=== PATIENT | female | born 1960 | race Caucasian/White ===

== ENCOUNTER 2024-06-27 08:02 | Emergency (ER) | payer BC, SELFPAY ==
--- NOTE | ~2024-06-27 | CT_ITS ---
EXAMINATION: CT ABDOMEN AND PELVIS WITHOUT CONTRAST CLINICAL INFORMATION: Pain COMPARISON: None available. TECHNIQUE: Multidetector volumetric imaging was performed from the superior aspect of the liver through the pubic symphysis. Sagittal and coronal reformatted images were obtained on the technologist's workstation. This CT examination was performed using dose optimization techniques as appropriate, variously including the following: *Automated exposure control *Adjustment of mA and/or kV according to patient size (this includes techniques or standardized protocols for targeted exams where dose is matched to indication/reason for exam; i.e. extremities or head) *Use of iterative reconstruction technique DLP: 6:15 mGy-cm FINDINGS: LUNG BASES: The visualized lung bases are unremarkable. LIVER, GALLBLADDER, AND BILIARY TREE: Changes of diffuse hepatic steatosis without any discrete lesion. No gross biliary ductal dilatation. The gallbladder is unremarkable with no evidence of radiopaque gallstones, gallbladder wall thickening, or obvious pericholecystic inflammatory changes. PANCREAS: Unremarkable. SPLEEN: Unremarkable. ADRENAL GLANDS: Unremarkable. KIDNEYS AND URETERS: There is mild fullness of the right urinary collecting system without a definite stone seen. No evidence for any definite passed stone within the bladder lumen. No left-sided abnormality. BLADDER: Unremarkable. GASTROINTESTINAL TRACT: The small and large bowel are unremarkable. The appendix is unremarkable. ABDOMINAL WALL: No significant hernia is appreciated. LYMPH NODES: Normal. VASCULAR: Unremarkable. PELVIC VISCERA: Unremarkable. OSSEOUS STRUCTURES: Unremarkable. CT/CT abdomen pelvis wo IV con IMPRESSION: Mild fullness of the right urinary collecting system without a definite stone seen. This may be related to a recently passed stone. Normal appendix. Fleischner guidelines were followed.
[2024-06-27 08:19] VITALS: BP 127/65; BP 139/50; PULSE 65; PULSE 74; RESP 18; TEMP 37.7; O2SAT 94; O2SAT 99; BMI 28.1
--- NOTE | 2024-06-27 08:25 | ED_ITS ---
HPI - Female Genitourinary General Chief complaint: Urogenital-Female Stated complaint: UTI SYMPTOMS FEVER Time Seen by Provider: 06/27/24 08:08 Source: patient and EMS Mode of arrival: EMS Limitations: no limitations History of Present Illness ED Provider: DR. Jansen HPI Narrative: 64-year-old female brought in by ambulance for evaluation of abdominal pain and nausea. For the past 2 days patient been having dysuria, frequency urination and urinary hesitancy was seen by her PCP yesterday who diagnosed her with UTI and prescribed Macrobid 100 mg b.i.d. x5 days patient took her 1st dose yesterday woke up this morning with fever 100.8, feeling nauseous, and right side abdominal pain then patient called 911 and was received Zofran from EMS now patient feels better. Patient is complaining of right-sided abdominal pain. 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 No history of intra-abdominal surgery. Related Data Allergies Allergy/AdvReac Type Severity Reaction Status Date / Time fentanyl Allergy Anaphylaxis Verified 06/27/24 08:20 Review of Systems 2 Review of Systems: All other systems are reviewed and are negative Constitutional: Reports as per HPI and Reports no additional constitutional complaints Eyes: Reports as per HPI and Reports no additional eye complaints Reports system reviewed and no additional complaints, except as documented Cardiovascular: Reports as per HPI and Reports no additional cardiovascular complaints Respiratory: Reports as per HPI and Reports no additional respiratory complaints Gastrointestinal: Reports as per HPI and Reports no additional gastrointestinal complaints Genitourinary: Reports no additional female genitourinary complaints Musculoskeletal: Reports no additional musculoskeletal complaints Skin/Breast: Reports system reviewed and no additional complaints, except as docu Psychiatric: Reports no additional psychiatric complaints Endocrine: Reports no additional endocrine complaints Hematologic/Lymphatic: Reports no additional hematologic/lymphatic complaints Allergic/Immunologic: Reports no additional allergic/immunologic complaints Reports system reviewed and no additional complaints, except as documented and Reports Abnormal speech present [facility] Social History Social History Alcohol intake: current Alcohol intake frequency: 0-2 drinks per day Alcohol type: wine Smoked in Last 30 Days: No Use of substances other than those prescribed or required for medical reasons: No Advance Directives: No Advance Directives Information Provided: No Physical Exam 2 Vital Signs: Vital Signs: Last Vital Signs Temp 98.9 F 06/27/24 09:53 Pulse 69 06/27/24 09:53 Resp 16 06/27/24 09:53 BP 121/53 L 06/27/24 09:53 Pulse Ox 95 06/27/24 09:53 O2 Del Method Room Air 06/27/24 09:53 BMI result Body Mass Index 28.1 Vital signs have been reviewed and appear to be correct. Blood pressure elevated. Heart rate normal. Respiratory rate normal. Temperature normal. Oxygen saturation normal. Appearance: Alert. Oriented X3. No acute distress. Head: Normal external exam. Normocephalic. Atraumatic. No Lindsey signs noted. No raccoon eyes noted Eyes: PERRLA. EOMI. Conjunctiva and sclera normal. Eyelids normal. ENT: TM's Normal. Pharynx normal. Uvula midline. Moist mucous membranes. No trismus noted. No drooling noted. No muffled voice noted. Neck: Normal inspection. Neck supple. FROM. No adenopathy. Thyroid Normal. No meningeal signs. No neck mass noted. CVS: Normal heart rate and rhythm. Heart sound normal. No murmurs noted. Pulses normal throughout. Respiratory: No respiratory distress. Painless inspiration. Breath sounds normal. No wheezes/rales/rhonchi noted. Chest nontender. No accessory muscle usage noted or decreased air movement noted. Abdomen: Soft and nontender. Bowel sounds normal in all 4 quadrants. No distention noted. No organomegaly noted. No visible injury noted. Back: No CVA tenderness. Full range of motion noted. Skin: Skin warm and dry. Normal skin color. Normal skin turgor. No rashes/lesions/lacerations noted. Extremities: No lower extremity edema. Extremities exhibit normal range of motion. Extremities nontender. Neuro: Oriented X 3. Cranial nerve exam: II-XII are grossly intact No motor deficit. No sensory deficit. Reflexes normal. Course Reevaluation(s) Reevaluation #1: 64-year-old female presented with generally not feeling well, recently treated with Macrobid for UTI only took 1 dose yesterday. Patient was instructed to finish her antibiotic and drink plenty of fluids and follow-up with the PCP. Time: 11:21 Medications Administered Discontinued Medications Generic Name Dose Route Start Last Admin Trade Name Freq PRN Reason Stop Dose Admin Sodium Chloride 1,000 mls @ 999 mls/hr 06/27/24 08:24 06/27/24 09:51 Ns IV 06/27/24 09:24 Infused .Q1H1M ONE Infusion Medical Decision Making Differential Diagnosis Differential Diagnoses: The differential diagnosis associated with the presentation includes (Acute appendicitis, colitis, diverticulitis, acute pancreatitis, acute cholecystitis, UTI, pyelonephritis, kidney stone, electrolyte derangement, severe anemia.) Admission/Observation Consideration of admission/observation: Escalation of care including admission/observation considered Lab Data MDM Lab Attestation statement: I reviewed the patient's lab results. 06/27/24 08:55 06/27/24 08:55 Labs: Lab Results 06/27/24 06/27/24 Range/Units 08:55 09:54 WBC 6.9 (4.8-10.8) X10*3/uL RBC 3.55 L (4.20-5.50) X10*6/uL Hgb 11.7 L (12.0-16.0) g/dl Hct 33.4 L (37.0-47.0) % MCV 94.1 (80.0-98.0) fL MCH 33.0 (27.0-33.0) pg MCHC 35.0 (31.0-35.0) g/dl RDW 12.5 (11.0-16.0) % Plt Count 149 L (160-400) X10*3/uL MPV 8.9 L (9.4-12.3) fL Immature Gran % (Auto) 0.6 H (0.0-0.4) % Neut % (Auto) 88.9 H (45-73) % Lymph % (Auto) 2.8 L (20-40) % [place] % (Auto) 6.4 (2-11) % Eos % (Auto) 0.9 (0-4) % Baso % (Auto) 0.4 (0-2) % Lymph # (Auto) 0.2 L (1.2-4.9) X10*3/uL [place] # (Auto) 0.4 (0.1-1.2) X10*3/uL Eos # (Auto) 0.1 (0.0-0.4) X10*3/uL Baso # (Auto) 0.0 (0.0-0.2) X10*3/uL Abs Immat Gran (auto) 0.04 H (0.00-0.03) X10*3/uL Absolute Neuts (auto) 6.1 (2.0-8.3) x10*3/uL Absolute Nucleated RBC 0.000 (0.0-0.012) X10*3/uL Nucleated RBC % (auto) 0.0 (0.0-0.2) /100WBC Sodium 140 (135-145) mmol/L Potassium 3.9 (3.3-5.1) mmol/L Chloride 104 (96-108) mmol/L Carbon Dioxide 26 (22-29) mmol/L Anion Gap 14 (12-20) BUN 20 H (9-16) mg/dL Creatinine 0.73 (0.5-1.4) mg/dL Estim Creat Clear Calc 78.9 Estimated GFR > 60 Random Glucose 105 (60-115) mg/dL Calcium 8.5 (8.4-10.2) mg/dL Total Bilirubin 0.4 (0.0-1.0) mg/dL Direct Bilirubin 0.1 (0.0-0.5) mg/dL AST 25 (5-31) U/L ALT 30 (0-31) U/L Alkaline Phosphatase 88 (39-117) U/L Total Protein 6.5 (6.5-8.0) g/dL Albumin 4.1 (3.5-5.0) g/dL Lipase 19 (8-78) U/L Urine Color [place] Urine Appearance Clear Urine pH 6.5 (5.0-9.0) Ur Specific [place] 1.015 (1.005-1.025) Urine Protein Negative (Neg-Trace) mg/dL Urine Glucose (UA) 100 H (Negative) mg/dL Urine Ketones Negative (Negative) mg/dL Urine Blood Trace (Negative) Urine Nitrite Positive H (Negative) Ur Leukocyte Esterase Negative (Negative) Urine RBC 0-2 (0-2) /HPF Urine WBC 0-5 (0-5) /HPF Ur Squamous Epith Cells 0-2 (0-2) /HPF Urine Bacteria None Seen (None Seen) Hyaline Casts 0-2 (0-2) /LPF Independent Interpretation I performed an independent interpretation of an: CT Scan (CT abdomen pelvis:Mild fullness of the right urinary collecting system without a definite stone seen. This may be related to a recently passed stone. Normal appendix.) Radiology Impression Discussion of test interpretation with radiology: I have reviewed the radiologist's reading. Discharge Plan Discharge Clinical Impression: Urinary tract infection Patient Disposition: Home, Self-Care Instructions: Urinary Tract Infection in Women (ED) Additional Instructions: Continue with your antibiotic as prescribed by your doctor. Drink plenty of fluids. Take Tylenol 500 mg tablet [id number] medication if needed every 6 hours for fever. Referrals: Rozina Kovacs NP [Primary Care Provider] - Print Language: Wolof
[2024-06-27 08:31] VITALS: BP 132/60; PULSE 65; RESP 16; TEMP 37.7; O2SAT 95
[2024-06-27] MEDS: 0.9 % Sodium Chloride 1,000 ML 999 ML IV (08:37)
[2024-06-27 09:02] LABS: MANUAL DIFF FLAG NO
[2024-06-27 09:07] LABS: Basophils Percent Auto 0.4 % (0-2); Eosinophils Absolute Auto 0.1 X10*3/uL (0.0-0.4); Eosinophils Percent Auto 0.9 % (0-4); Hematocrit 33.4 % (37.0-47.0); Hemoglobin 11.7 g/dl (12.0-16.0); Imm Gran Abs Auto 0.04 X10*3/uL (0.00-0.03); Imm Gran Pct Auto 0.6 % (0.0-0.4); Lymphocytes Absolute Auto 0.2 X10*3/uL (1.2-4.9); Lymphocytes Percent Auto 2.8 % (20-40); Mean Corpuscular Volume 94.1 fL (80.0-98.0); Mean Platelet Volume 8.9 fL (9.4-12.3); Monocytes Absolute Auto 0.4 X10*3/uL (0.1-1.2); Monocytes Percent Auto 6.4 % (2-11); Neutrophils Absolute Auto 6.1 x10*3/uL (2.0-8.3); Neutrophils Percent Auto 88.9 % (45-73); Platelet Count 149 X10*3/uL (160-400); Red Blood Count 3.55 X10*6/uL (4.20-5.50); Red Cell Distribution Width 12.5 % (11.0-16.0); White Blood Count 6.9 X10*3/uL (4.8-10.8)
[2024-06-27 09:18] LABS: Alanine Aminotransferase 30 U/L (0-31); Albumin Level 4.1 g/dL (3.5-5.0); Alkaline Phosphatase 88 U/L (39-117); Anion Gap 14 (12-20); Aspartate Amino Transferase 25 U/L (5-31); Bilirubin Direct 0.1 mg/dL (0.0-0.5); Bilirubin Total 0.4 mg/dL (0.0-1.0); Blood Urea Nitrogen 20 mg/dL (9-16); Calcium 8.5 mg/dL (8.4-10.2); Carbon Dioxide 26 mmol/L (22-29); Chloride 104 mmol/L (96-108); Creatinine Clr Calc Pharmacy 78.9; Estimated Glomerular Filt Rate > 60; Glucose Random 105 mg/dL (60-115); Lipase 19 U/L (8-78); Potassium 3.9 mmol/L (3.3-5.1); Sodium 140 mmol/L (135-145); Total Protein 6.5 g/dL (6.5-8.0)
[2024-06-27 09:53] VITALS: BP 121/53; PULSE 69; RESP 16; TEMP 37.2; O2SAT 95
[2024-06-27 10:03] LABS: Appearance Urine Clear; Glucose Urine UA 100 mg/dL (Negative); Leukocyte Esterase Urine Negative (Negative); Nitrite Urine Positive (Negative); PH 6.5 (5.0-9.0); Specific Gravity - Urine 1.015 (1.005-1.025); UMIC TRIGGER UACC YES; Urine Blood Trace (Negative); Urine Ketones Negative (Negative); Urine Protein Negative (Neg-Trace)
[2024-06-27 10:10] LABS: Color Urine Orange
[2024-06-27 10:12] LABS: Bacteria Urine None Seen (None Seen); Hyaline Casts Urine 0-2 /LPF (0-2); RBC Urine 0-2 /HPF (0-2); Squamous Epithelial Cell Urine 0-2 /HPF (0-2); UACC Culture Trigger YES; WBC Urine 0-5 /HPF (0-5)
[2024-06-27] MEDS: Acetaminophen 325 MG TABLET 650 MG PO (11:40)
[2024-06-27 11:42] VITALS: BP 128/48; PULSE 64; RESP 16; TEMP 36.9; O2SAT 95
[2024-06-27 11:53] VITALS: BP 128/48; PULSE 64; RESP 16; TEMP 36.9; O2SAT 95
== END 2024-06-27 11:53 | disposition home or self-care (01) ==
PROVIDERS: Emergency Provider Emergency Medicine; PCP Nurse Practitioner
DX: N39.0 Urinary tract infection, site not specified (principal); R10.9 Unspecified abdominal pain
CPT/HCPCS: 36415; 74176; 80048; 80076; 81001; 81003; 83690; 85025; 87040; 87086; 96360; 99284

== ENCOUNTER 2024-09-02 06:51 | Inpatient (IN) | payer BC, SELFPAY ==
[2024-09-02] VITALS (20 sets, daily range): BP systolic 91–140; BP diastolic 50–89; PULSE 55–95; RESP 14–24; TEMP 36.7–38.8; O2SAT 92–97; BMI 23.2
--- NOTE | ~2024-09-02 | XR_ITS ---
EXAMINATION: XR CHEST CLINICAL INFORMATION: Shortness of breath. Fever. COMPARISON: None available. TECHNIQUE: Frontal view of the chest was obtained. FINDINGS: Right chest pacemaker with leads extending to the right atrium and right ventricle. Cardiomediastinal silhouette is within normal limits. Lungs are symmetrically expanded. No focal consolidation, effusion, edema or pneumothorax. No acute osseous abnormality. XR/XR chest 1V IMPRESSION: No evidence of acute pulmonary process. Electronically signed by: Tre Taylor MD 09/02/2024 08:50 AM EDT
--- NOTE | ~2024-09-02 | CT_ITS ---
EXAMINATION: CT ANGIOGRAM CHEST CLINICAL INFORMATION: Hypoxia, sepsis, elevated D-dimer. COMPARISON: None available. TECHNIQUE: Multiple axial images were obtained through the chest after the administration of 85 mL of Omnipaque 350 intravenous contrast. Extensive vascular post-processing including two-dimensional and three-dimensional reformatted images were created and reviewed on an independent workstation. This CT examination was performed using dose optimization techniques as appropriate, variously including the following: *Automated exposure control *Adjustment of mA and/or kV according to patient size (this includes techniques or standardized protocols for targeted exams where dose is matched to indication/reason for exam; i.e. extremities or head) *Use of iterative reconstruction technique DLP: 741 mGy-cm FINDINGS: QUALITY OF STUDY/CONTRAST BOLUS: Satisfactory. PULMONARY ARTERIES: No evidence of filling defects in the main, lobar, segmental vessels to suggest pulmonary embolus. THORACIC AORTA: No aneurysm. LUNG: Patchy opacities in the posterior aspect of bilateral lower lungs, likely reflecting atelectasis. No lobar consolidation otherwise. No suspicious pulmonary nodules seen. PLEURA: No pleural effusion or pneumothorax. MEDIASTINUM: Normal heart size. No pericardial effusion. No hilar or mediastinal lymphadenopathy. No evidence of septal bowing or right heart strain. CORONARY ARTERY CALCIFICATION: None visualized on this study. CHEST WALL/AXILLA: No axillary or internal mammary lymphadenopathy. OSSEOUS STRUCTURES: No acute or suspicious osseous abnormality. UPPER ABDOMEN: See abdomen CT report. No reflux of contrast into the hepatic veins to suggest elevated right heart pressures. CT/CT angio chest PE protocol IMPRESSION: No evidence of filling defects to suggest pulmonary embolism. Opacities in the posterior aspect bilateral lungs, probably reflecting atelectasis versus infectious/inflammatory process. VTE: Negative Fleischner guidelines were followed. Electronically signed by: Tre Taylor MD 09/02/2024 01:43 PM EDT
--- NOTE | ~2024-09-02 | CT_ITS ---
EXAMINATION: CT ABDOMEN AND PELVIS WITH CONTRAST CLINICAL INFORMATION: Flank pain, sepsis. COMPARISON: CT 06/27/2024. TECHNIQUE: Multidetector volumetric images were obtained from the superior aspect of the liver through the pubic symphysis following administration 85 mL of Omnipaque 350 intravenous contrast. Sagittal and coronal reformatted images were obtained on the technologist's workstation. Oral contrast: No This CT examination was performed using dose optimization techniques as appropriate, variously including the following: *Automated exposure control *Adjustment of mA and/or kV according to patient size (this includes techniques or standardized protocols for targeted exams where dose is matched to indication/reason for exam; i.e. extremities or head) *Use of iterative reconstruction technique DLP: 81.29 mGy-cm. FINDINGS: LUNG BASES: See CT chest report. LIVER, GALLBLADDER, AND BILIARY TREE: The liver is normal in size, shape, and attenuation. No focal hepatic lesion or biliary ductal dilatation is present. The gallbladder is unremarkable with no evidence of radiopaque gallstones, gallbladder wall thickening, or obvious pericholecystic inflammatory changes. PANCREAS: Unremarkable. SPLEEN: Unremarkable. ADRENAL GLANDS: Unremarkable. KIDNEYS AND URETERS: Symmetric enhancement. Small left renal hypodense lesion, probable cyst, no followup indicated. No calculi seen. No hydronephrosis. BLADDER: Unremarkable. GASTROINTESTINAL TRACT: The small and large bowel are unremarkable. No acute inflammatory changes seen. The appendix is unremarkable. No free fluid. No free air. ABDOMINAL WALL: No significant hernia is appreciated. LYMPH NODES: No adenopathy is identified. VASCULAR: Normal caliber aorta. Hepatic and portal veins are enhancing. PELVIC VISCERA: Unremarkable. OSSEOUS STRUCTURES: No destructive osseous process seen. CT/CT abdomen pelvis w IV con IMPRESSION: No acute intra-abdominal findings identified. Cause of the patient's symptoms has not been determined by CT. Clinically correlate. Additional/follow-up imaging as clinically indicated. No acute bowel inflammatory changes. Appendix appears unremarkable. Fleischner guidelines were followed. Electronically signed by: Tre Taylor MD 09/02/2024 01:44 PM EDT
[2024-09-02] MEDS: 0.9 % Sodium Chloride 1,837.05 ML 1837.05 ML IV (08:02)
[2024-09-02 08:07] LABS: Hemoglobin 13.1 g/dl (12.0-16.0); Mean Corpuscular HGB Conc 34.5 g/dl (31.0-35.0); Mean Corpuscular Hemoglobin 30.8 pg (27.0-33.0); Mean Corpuscular Volume 89.4 fL (80.0-98.0); Mean Platelet Volume 9.3 fL (9.4-12.3); Platelet Count 156 X10*3/uL (160-400); Red Blood Count 4.25 X10*6/uL (4.20-5.50); Red Cell Distribution Width 11.9 % (11.0-16.0); White Blood Count 7.3 X10*3/uL (4.8-10.8)
--- NOTE | 2024-09-02 08:11 | ED_ITS ---
HPI - Weakness General Chief complaint: Fever Stated complaint: SEIZURES/FEVER/VOMITTING Time Seen by Provider: 09/02/24 07:11 Source: patient, EMS and old records reviewed Mode of arrival: EMS Limitations: no limitations History of Present Illness ED Provider: GEORGI BRAY Narrative: 64 yo female with PMH of autonomic dysfunction and prior hx of UTI and pyelonephritis who presents with recent UTI symptoms had urine culture obtained by her PCP - started macrobid last night and felt very ill weak with nausea/vomiting/headaches and fevers. She states she had a similar reaction in the past to this medication so she is not sure why they keep starting her on macrobid (I had to go through her pill bag to figure out what abx she was on). She is somewhat of a poor historian and is hard to follow. She denies syncope. She states she is too weak to give urine sample at this time. She c/o nausea and feeling unwell. She has Rx for fludrocortisone but is not on it currently it is new and has no dx of adrenal insufficiency. MD Complaint: generalized weakness Onset (ago): day(s) (few days but much worse after medication last night) Duration: progressively worsening Location: generalized Migration: none Severity: severe Relieving factors: none Exacerbating factors: movement and exertion Context: recent illness Associated symptoms: fever/chills, headaches, loss of appetite and nausea/vomiting Related Data Allergies Allergy/AdvReac Type Severity Reaction Status Date / Time fentanyl Allergy Anaphylaxis Verified 09/02/24 07:16 nitrofurantoin AdvReac Vomiting Verified 09/02/24 13:09 Review of Systems 2 Review of Systems: Constitutional : pos Fever, pos Chills, pos Fatigue ENT/Mouth : No sore throat, No Rhinorrhea Eyes: No Eye Pain, No Swelling, No Redness Cardiovascular : No Chest Pain, No SOB, No Dyspnea on Exertion Respiratory : No Cough, No Sputum Gastrointestinal : pos Nausea, pos Vomiting, No Diarrhea, No abdominal Pain Genitourinary : No Dysuria, No Urinary Frequency, No Hematuria, Musculoskeletal : No joint pain, No Myalgias, No Joint Swelling Skin : No Skin Lesions, No rash Neuro : pos Weakness, No Numbness, No Dizziness, positive Headache All other systems reviewed and are negative PMFSH Past Medical History Attestation statement: The following information was validated with the patient. Source: old records reviewed Medical History (Updated 09/02/24 @ 13:59 by Landy English DO) Anxiety Pacemaker HTN (hypertension) Reactive airway disease Autonomic dysfunction Social History Social History Alcohol intake: current Alcohol intake frequency: 0-2 drinks per day Alcohol type: wine Advance Directives: No Advance Directives Information Provided: No Do you have a plan to hurt others: No Plan Physical Exam 2 Vital Signs: Vital Signs: Last Vital Signs Temp 99.0 F 09/02/24 12:00 Pulse 74 09/02/24 13:46 Resp 21 H 09/02/24 13:46 BP 95/53 L 09/02/24 13:46 Pulse Ox 97 09/02/24 13:46 O2 Del Method Nasal Cannula 09/02/24 13:46 O2 Flow Rate 2 09/02/24 13:46 BMI result Body Mass Index 23.2 Appearance: Alert. Oriented X3. No acute distress. Eyes: Pupils equal, round and reactive to light. ENT: Pharynx mildly dry MM Neck: Normal inspection. Neck supple. CVS: Normal heart rate and rhythm. Pulses normal. Respiratory: No respiratory distress. Breath sounds normal. Abdomen: Soft and nontender. Skin: Skin warm and dry. pale skin color. Normal skin turgor. Extremities: No lower extremity edema. Neuro: Oriented X 3. No motor deficit. No sensory deficit. Course Course Course Narrative: has new hypoxia and given this along with elevated ddimer will obtain CT scan of flank for abscess and CTA:PE for VTE and pneumonia Reevaluation(s) Reevaluation #1: BP slowly trending down at this time repeat fluid bolus and will dose with IV hydrocortisone and PO florinef given her use of florinef. Medications Administered Discontinued Medications Generic Name Dose Route Start Last Admin Trade Name Claudioq PRN Reason Stop Dose Admin Acetaminophen 650 mg 09/02/24 08:22 09/02/24 09:02 Acetaminophen 325 Mg Tablet PO 09/02/24 08:23 650 mg ONCE ONE Administration Fludrocortisone Acetate 0.1 mg 09/02/24 11:04 09/02/24 11:36 Fludrocortisone Acetate 0.1 Mg Tablet PO 09/02/24 11:05 0.1 mg ONCE ONE Administration Hydrocortisone Sodium Succinate 100 mg 09/02/24 11:34 09/02/24 11:57 Hydrocortisone Sod Succ/Pf 100 Mg Vial IVPUSH 09/02/24 11:35 100 mg ONCE ONE Administration Ceftriaxone Sodium 1 gm/ 50 mls @ 100 mls/hr 09/02/24 07:36 09/02/24 08:45 Sodium Chloride IV 09/02/24 08:05 Infused ONCE ONE Infusion Sodium Chloride 1,837.05 mls @ 1,837.05 mls/hr 09/02/24 07:37 09/02/24 09:56 Ns 30 ml/kg infuse over 1 hr (1837.05 ml) 09/02/24 08:36 Infused IV Infusion .Q1H STA Levofloxacin 750 mg in 150 mls @ 100 mls/hr 09/02/24 09:45 09/02/24 11:57 Levaquin IV 09/02/24 11:14 Infused ONCE ONE Infusion Lactated Ringer's 1,000 mls @ 999 mls/hr 09/02/24 11:03 09/02/24 12:38 Lr IV 09/02/24 12:03 Infused .Q1H1M ONE Infusion Iohexol 100 ml 09/02/24 10:40 09/02/24 10:41 Iohexol 350 Mg/Ml 100 Ml Infus..Btl IV 09/02/24 10:41 85 ml ONCE ONE Administration Ondansetron HCl 4 mg 09/02/24 08:05 09/02/24 08:13 Ondansetron Hcl 4 Mg/2 Ml Vial IVPUSH 09/02/24 08:06 4 mg ONCE ONE Administration Medical Decision Making Medical Decision Making MDM Narrative: 64 yo female with PMH of autonomic dysfunction and prior hx of UTI and pyelonephritis here with c/o feeling unwell as well as n/v headaches at this time she states she is not on fludrocortisone and does not have adrenal insufficiency so I am not going to give her stress dose steroids. Will obtain labs, cultures, start on ceftriaxone 30cc/kg bolus. Chest xray for diminished O2 sats in case of pneumonia though she doesn't report CP/SOB. Differential Diagnosis Differential Diagnoses: The differential diagnosis associated with the presentation includes UTI, pneumonia Admission/Observation Consideration of admission/observation: Escalation of care including admission/observation considered admit given presentation and bandemia Consult Healthcare Provider Management of the patient was discussed with: Hospitalist will admit Lab Data MDM Lab Attestation statement: I reviewed the patient's lab results. trop remains flat 09/02/24 07:57 09/02/24 07:57 Labs: Lab Results 09/02/24 09/02/24 09/02/24 Range/Units 07:56 07:57 09:15 WBC 7.3 (4.8-10.8) X10*3/uL RBC 4.25 (4.20-5.50) X10*6/uL Hgb 13.1 (12.0-16.0) g/dl Hct 38.0 (37.0-47.0) % MCV 89.4 (80.0-98.0) fL MCH 30.8 (27.0-33.0) pg MCHC 34.5 (31.0-35.0) g/dl RDW 11.9 (11.0-16.0) % Plt Count 156 L (160-400) X10*3/uL MPV 9.3 L (9.4-12.3) fL Immature Gran % (Auto) Cancelled Neut % (Auto) Cancelled Lymph % (Auto) Cancelled [place] % (Auto) Cancelled Eos % (Auto) Cancelled Baso % (Auto) Cancelled Lymph # (Auto) Cancelled [place] # (Auto) Cancelled Eos # (Auto) Cancelled Baso # (Auto) Cancelled Abs Immat Gran (auto) Cancelled Absolute Neuts (auto) Cancelled Absolute Nucleated RBC 0.000 (0.0-0.012) X10*3/uL Nucleated RBC % (auto) 0.0 (0.0-0.2) /100WBC Neutrophils % (Manual) 79 H (45-73) % Band Neutrophils % 14 H (3-5) % Lymphocytes % (Manual) 6 L (20-40) % Monocytes % (Manual) 1 L (2-11) % Abs Neuts (Manual) 6.8 (2.0-8.3) X10*3/uL Lymphocytes # (Manual) 0.4 L (1.2-4.9) X10*3/uL Monocytes # (Manual) 0.1 (0.1-1.2) X10*3/uL Toxic Vacuolation PRESENT Platelet Estimate SLIGHTLY DECREASED (NORMAL) Plt Morphology Comment NORMAL RBC Morphology NORMAL D-Dimer High Sensitivty 606 NG/ML Sodium 140 (135-145) mmol/L Potassium 3.3 (3.3-5.1) mmol/L Chloride 104 (96-108) mmol/L Carbon Dioxide 26 (22-29) mmol/L Anion Gap 13 (12-20) BUN 13 (9-16) mg/dL Creatinine 0.79 (0.5-1.4) mg/dL Estim Creat Clear Calc 63.8 Estimated GFR > 60 Random Glucose 114 (60-115) mg/dL Lactic Acid 1.7 (0.5-2.0) mmol/L Calcium 9.8 D (8.4-10.2) mg/dL Magnesium 1.8 (1.6-2.6) mg/dL Total Bilirubin 0.7 (0.0-1.0) mg/dL Direct Bilirubin 0.3 (0.0-0.5) mg/dL AST 40 H (5-31) U/L ALT 51 H (0-31) U/L Alkaline Phosphatase 103 (39-117) U/L Troponin I High Sens 26.3 H (<3.5-17.0) ng/L Total Protein 7.2 (6.5-8.0) g/dL Albumin 4.6 (3.5-5.0) g/dL Lipase 19 (8-78) U/L Urine Color Urine Appearance Urine pH (5.0-9.0) Ur Specific [place] (1.005-1.025) Urine Protein (Neg-Trace) mg/dL Urine Glucose (UA) (Negative) mg/dL Urine Ketones (Negative) mg/dL Urine Blood (Negative) Urine Nitrite (Negative) Ur Leukocyte Esterase (Negative) Influenza Type A (PCR) NEGATIVE (Negative) Influenza Type B (PCR) NEGATIVE (Negative) RSV RNA Qual (PCR) NEGATIVE (Negative) SARS-CoV-2 RNA (RT-PCR) NEGATIVE (Negative) 09/02/24 Range/Units 10:56 WBC (4.8-10.8) X10*3/uL RBC (4.20-5.50) X10*6/uL Hgb (12.0-16.0) g/dl Hct (37.0-47.0) % MCV (80.0-98.0) fL MCH (27.0-33.0) pg MCHC (31.0-35.0) g/dl RDW (11.0-16.0) % Plt Count (160-400) X10*3/uL MPV (9.4-12.3) fL Immature Gran % (Auto) Neut % (Auto) Lymph % (Auto) [place] % (Auto) Eos % (Auto) Baso % (Auto) Lymph # (Auto) [place] # (Auto) Eos # (Auto) Baso # (Auto) Abs Immat Gran (auto) Absolute Neuts (auto) Absolute Nucleated RBC (0.0-0.012) X10*3/uL Nucleated RBC % (auto) (0.0-0.2) /100WBC Neutrophils % (Manual) (45-73) % Band Neutrophils % (3-5) % Lymphocytes % (Manual) (20-40) % Monocytes % (Manual) (2-11) % Abs Neuts (Manual) (2.0-8.3) X10*3/uL Lymphocytes # (Manual) (1.2-4.9) X10*3/uL Monocytes # (Manual) (0.1-1.2) X10*3/uL Toxic Vacuolation Platelet Estimate (NORMAL) Plt Morphology Comment RBC Morphology D-Dimer High Sensitivty NG/ML Sodium (135-145) mmol/L Potassium (3.3-5.1) mmol/L Chloride (96-108) mmol/L Carbon Dioxide (22-29) mmol/L Anion Gap (12-20) BUN (9-16) mg/dL Creatinine (0.5-1.4) mg/dL Estim Creat Clear Calc Estimated GFR Random Glucose (60-115) mg/dL Lactic Acid (0.5-2.0) mmol/L Calcium (8.4-10.2) mg/dL Magnesium (1.6-2.6) mg/dL Total Bilirubin (0.0-1.0) mg/dL Direct Bilirubin (0.0-0.5) mg/dL AST (5-31) U/L ALT (0-31) U/L Alkaline Phosphatase (39-117) U/L Troponin I High Sens 28.6 H (<3.5-17.0) ng/L Total Protein (6.5-8.0) g/dL Albumin (3.5-5.0) g/dL Lipase (8-78) U/L Urine Color Yellow Urine Appearance Clear Urine pH 6.5 (5.0-9.0) Ur Specific [place] 1.020 (1.005-1.025) Urine Protein Negative (Neg-Trace) mg/dL Urine Glucose (UA) Negative (Negative) mg/dL Urine Ketones Negative (Negative) mg/dL Urine Blood Negative (Negative) Urine Nitrite Negative (Negative) Ur Leukocyte Esterase Negative (Negative) Influenza Type A (PCR) (Negative) Influenza Type B (PCR) (Negative) RSV RNA Qual (PCR) (Negative) SARS-CoV-2 RNA (RT-PCR) (Negative) Independent Interpretation I performed an independent interpretation of an: EKG, Plain X-Ray and CT Scan (no VTE, no acute abdominal pathology, possible early PNA) Interpretation: Rate: 60 Rhythm: a paced [place]: normal Normal P waves. Normal NNAMDI. Normal QRS complex. ST T wave : inverted t waves II, III, aVF, V4-V6, no STEMI qTC: 438 prior studies: no prior The study has been interpreted contemporaneously by me. . Radiology Impression Discussion of test interpretation with radiology: I have reviewed the radiologist's reading. Independent Historian Clinical information obtained from an independent historian. History obtained from or confirmed by: EMS External Record Review External record reviewed: Inpatient record and Prior outpatient labs Critical Care Time Critical Care Time Critical Care Time: Yes Total Critical Care Time: 60 Attestation: sepsis protocol, 2L of IVF, admission Discharge Plan Discharge Clinical Impression: Bandemia, Fever, Hypoxia Patient Disposition: Admitted As Inpatient Print Language: Macedonian
[2024-09-02] MEDS: cefTRIAXone sodium 1 GM in 0.9 % Sodium Chloride 50 ML IV (08:13)
[2024-09-02] MEDS: ondansetron HCL 4 MG/2 ML VIAL IVPUSH (08:13)
[2024-09-02 08:28] LABS: Neutrophils Percent Manual 79 % (45-73)
[2024-09-02 08:30] LABS: Band Neutrophils Percent 14 % (3-5); Lymphocytes Absolute Manual 0.4 X10*3/uL (1.2-4.9); Lymphocytes Percent Manual 6 % (20-40); Monocytes Absolute Manual 0.1 X10*3/uL (0.1-1.2); Monocytes Percent Manual 1 % (2-11); Neutrophils Absolute Manual 6.8 X10*3/uL (2.0-8.3)
[2024-09-02 08:31] LABS: Platelet Estimate SLIGHTLY DECREASED (NORMAL); Platelet Morphology Comment NORMAL; RBC Morphology NORMAL; Toxic Vacuolation PRESENT
[2024-09-02 08:37] LABS: Lactic Acid 1.7 mmol/L (0.5-2.0)
[2024-09-02 08:38] LABS: Alanine Aminotransferase 51 U/L (0-31); Albumin Level 4.6 g/dL (3.5-5.0); Alkaline Phosphatase 103 U/L (39-117); Anion Gap 13 (12-20); Aspartate Amino Transferase 40 U/L (5-31); Bilirubin Direct 0.3 mg/dL (0.0-0.5); Bilirubin Total 0.7 mg/dL (0.0-1.0); Blood Urea Nitrogen 13 mg/dL (9-16); Calcium 9.8 mg/dL (8.4-10.2); Carbon Dioxide 26 mmol/L (22-29); Chloride 104 mmol/L (96-108); Creatinine Clr Calc Pharmacy 63.8; Estimated Glomerular Filt Rate > 60; Glucose Random 114 mg/dL (60-115); Lipase 19 U/L (8-78); Magnesium 1.8 mg/dL (1.6-2.6); Potassium 3.3 mmol/L (3.3-5.1); Sodium 140 mmol/L (135-145); Total Protein 7.2 g/dL (6.5-8.0)
[2024-09-02 08:47] LABS: Troponin-I High Sensitivity 26.3 ng/L (<3.5-17.0)
--- NOTE | 2024-09-02 08:52 | ECG_ITS ---
Test Reason : elevated trop Blood Pressure : / mmHG Vent. Rate : 060 BPM Atrial Rate : 060 BPM P-R Int : 178 ms QRS Dur : 086 ms QT Int : 438 ms P-R-T Axes : 066 082 270 degrees QTc Int : 438 ms Normal sinus rhythm T wave abnormality, consider inferolateral ischemia Abnormal ECG No previous ECGs available Referred By: Landy English Electronically Signed By:LEXI PINEDA MD
[2024-09-02 08:58] LABS: Influenza A PCR NEGATIVE (Negative); Influenza B PCR NEGATIVE (Negative); Resp Syncy Virus RNA Qual PCR NEGATIVE (Negative); SARS COV2 PCR INHOUSE NEGATIVE (Negative)
[2024-09-02] MEDS: Acetaminophen 325 MG TABLET 650 MG PO (09:02)
[2024-09-02 09:41] LABS: D Dimer High Sensitivity 606 NG/ML
--- NOTE | 2024-09-02 10:34 | PC.NURSE ---
abx delayedptwentto CT scan
[2024-09-02] MEDS: levoFLOXacin/D5W 750 MG/150 ML PIGGYBACK 100 MG IV (10:35)
[2024-09-02] MEDS: iohexoL 350 MG/ML 100 ML INFUS..BTL IV (10:41)
[2024-09-02 11:03] LABS: Appearance Urine Clear; Color Urine Yellow; Glucose Urine UA Negative (Negative); Leukocyte Esterase Urine Negative (Negative); Nitrite Urine Negative (Negative); PH 6.5 (5.0-9.0); Urine Blood Negative (Negative); Urine Ketones Negative (Negative); Urine Protein Negative (Neg-Trace)
[2024-09-02 11:21] LABS: Troponin-I High Sensitivity 28.6 ng/L (<3.5-17.0)
[2024-09-02] MEDS: Lactated Ringers 1,000 ML 999 ML IV (11:30)
[2024-09-02] MEDS: Fludrocortisone Acetate 0.1 MG TABLET PO (11:36)
[2024-09-02] MEDS: Hydrocortisone Sod Succ/PF 100 MG VIAL IVPUSH (11:57)
--- NOTE | 2024-09-02 14:06 | PC.NURSE ---
pt transferred to the toilet x 1 assist. Pt states she still feel weak and unsteady. VSS pt denies pain currently
--- NOTE | 2024-09-02 14:57 | P.HPHOSP_ITS ---
History of Present Illness Date of Service: 09/02/24 <GUADALUPE Rojas Last Filed: 09/02/24 15:42> Attending physician on admission: Reggie Thomason <GUADALUPE Rojas Last Filed: 09/02/24 15:42> Chief Complaint: nausea, vomiting, fever <GUADALUPE Rojas Last Filed: 09/02/24 15:42> 64 yo F with a past medical history including autonomic dysfunction, UTIs, pyelonephritis, pacemaker, anxiety, ?reactive airway disease, who reported to the ED today for chills, nausea, vomiting, headache and fever. She reports she was diagnosed with a UTI recently by her PCP and was started on Macrobid 5 days later after receiving culture results. She reports in the past though when she took Macrobid she had a terrible reaction including chills, vomiting, nausea, and headache. She was treated for UTI in early June and reports that her symptoms have been persistent since however intermittent. Over the past few days her symptoms have become more persistent including urgency and dysuria in the morning which improves with significant hydration throughout the day. She also reports that she has had a chronic sinus infection for a few weeks and has not had any treatment for this aside from using a Neti pot at home. She has new dyspnea on exertion but denies any chest pain cough tachycardia or lower extremity edema. She does wear compression stockings to prevent any edema. She also has chronic constipation. Yesterday she was prescribed fludrocortisone by her autonomic dysfunction provider in [place]. She has not yet taken this. < GUADALUPE Rojas Last Filed: 09/02/24 15:42> Review of Systems 2 Constitutional: Constitutional: Reports chills and Reports fever(s) < GUADALUPE Rojas Last Filed: 09/02/24 15:42> Eyes: Eyes: Denies change in vision and Denies diplopia <GUADALUPE Rojas Last Filed: 09/02/24 15:42> ENT: Reports dizziness, Reports nasal congestion, Reports post nasal drip, Reports sinus pain and Reports sinus pressure <GUADALUPE Rojas Last Filed: 09/02/24 15:42> Cardiovascular: Cardiovascular: Denies chest pain, Denies rapid heart rate, Denies leg edema and Reports dyspnea on exertion <Jumana Oneal PA-C - Last Filed: 09/02/24 15:42> Respiratory: Respiratory: Denies cough and Reports dyspnea on exertion < Jumana Oneal PA-C - Last Filed: 09/02/24 15:42> Gastrointestinal: Gastrointestinal: Denies melena, Denies hematochezia, Reports constipation, Denies diarrhea, Reports nausea and Reports vomiting < Jumana Oneal PA-C - Last Filed: 09/02/24 15:42> Genitourinary: Genitourinary: Reports as per HPI <Jumana Oneal PA-C Last Filed: 09/02/24 15:42> Musculoskeletal: Musculoskeletal: Denies back pain and Denies myalgias < Jumana Oneal PA-C - Last Filed: 09/02/24 15:42> Integumentary/Breasts: Skin/Breast: Denies rash <Jumana Oneal PA-C - Last Filed: 09/02/24 15:42> Neurologic: Reports dizziness <Jumana Oneal PA-C Last Filed: 09/02/24 15:42> COUNTS INCLUDE 234 BEDS AT THE [facility] Medical History: Medical History (Updated 09/02/24 @ 15:42 by Jumana Oneal PA-C) Anxiety Pacemaker HTN (hypertension) Reactive airway disease Autonomic dysfunction <Jumana Oneal PA-C Last Filed: 09/02/24 15:42> Functional capacity: independent ambulation <Jumana Oneal PA-C - Last Filed: 09/02/24 15:42> Social History: Social History (Updated 09/02/24 @ 15:06 by Jumana Oneal PA-C) Household Members: None Alcohol intake: former Comment: quit all etoh 1 year ago. previous heavy use. Patient Tobacco Use Status: Former Tobacco user Use of substances other than those prescribed or required for medical reasons: No Advance Directives: No Advance Directives Information Provided: No Advance Directives on File: No Do you have thoughts of harming others: None Do you have a plan to hurt others: No Plan <GUADALUPE Rojas Last Filed: 09/02/24 15:42> Meds Allergies/Adverse reactions: Allergies Allergy/AdvReac Type Severity Reaction Status Date / Time fentanyl Allergy Anaphylaxis Verified 09/02/24 07:16 nitrofurantoin AdvReac Vomiting Verified 09/02/24 13:09 <GUADALUPE Rojas Last Filed: 09/02/24 15:42> Home medications: Home Medications ?Medication ?Instructions ?Recorded ?Confirmed ?Last Taken ?Type aspirin 81 mg tablet,delayed 81 mg PO DAILY 09/02/24 09/02/24 09/01/24 History release citalopram 20 mg tablet 20 mg PO DAILY 09/02/24 09/02/24 09/01/24 History losartan 25 mg tablet 25 mg PO DAILY 09/02/24 09/02/24 09/01/24 History trazodone 50 mg tablet 75 mg PO BEDTIME 09/02/24 09/02/24 09/01/24 History <GUADALUPE Rojas Last Filed: 09/02/24 15:42> Physical Exam 2 Vital Signs and Narrative: Vital Signs: Last Vital Signs Temp 98.3 F 09/02/24 14:00 Pulse 83 09/02/24 14:00 Resp 16 09/02/24 14:00 BP 119/73 09/02/24 14:00 Pulse Ox 96 09/02/24 14:00 O2 Del Method Room Air 09/02/24 14:00 O2 Flow Rate 2 09/02/24 14:00 BMI result Body Mass Index 23.2 <GUADALUPE Rojas Last Filed: 09/02/24 15:42> General: AOx3, no acute distress Resp: fine crackles LLL, CTA in other lorenzo CVS: RRR, +murmur GI: +BS, NT, no distention Skin: Warm, dry Extremities: No edema Psych: Appropriate affect <GUADALUPE Rojas Last Filed: 09/02/24 15:42> Results Labs CBC and Chem 7: 09/02/24 07:57 09/02/24 07:57 <GUADALUPE Rojas Last Filed: 09/02/24 15:42> Labs: Laboratory Results - last 24 hr 09/02/24 09/02/24 09/02/24 07:56 07:57 09:15 MCV 89.4 MCH 30.8 MCHC 34.5 RDW 11.9 Plt Count 156 L MPV 9.3 L Immature Gran % (Auto) Cancelled Neut % (Auto) Cancelled Lymph % (Auto) Cancelled [place] % (Auto) Cancelled Eos % (Auto) Cancelled Baso % (Auto) Cancelled Lymph # (Auto) Cancelled [place] # (Auto) Cancelled Eos # (Auto) Cancelled Baso # (Auto) Cancelled Abs Immat Gran (auto) Cancelled Absolute Neuts (auto) Cancelled Absolute Nucleated RBC 0.000 Nucleated RBC % (auto) 0.0 Neutrophils % (Manual) 79 H Band Neutrophils % 14 H Lymphocytes % (Manual) 6 L Monocytes % (Manual) 1 L Abs Neuts (Manual) 6.8 Lymphocytes # (Manual) 0.4 L Monocytes # (Manual) 0.1 Toxic Vacuolation PRESENT Platelet Estimate SLIGHTLY DECREASED Plt Morphology Comment NORMAL RBC Morphology NORMAL D-Dimer High Sensitivty 606 Anion Gap 13 Estim Creat Clear Calc 63.8 Estimated GFR > 60 Random Glucose 114 Lactic Acid 1.7 Calcium 9.8 D Magnesium 1.8 Total Bilirubin 0.7 Direct Bilirubin 0.3 AST 40 H ALT 51 H Alkaline Phosphatase 103 Troponin I High Sens 26.3 H Total Protein 7.2 Albumin 4.6 Lipase 19 Urine Color Urine Appearance Urine pH Ur Specific [place] Urine Protein Urine Glucose (UA) Urine Ketones Urine Blood Urine Nitrite Ur Leukocyte Esterase Influenza Type A (PCR) NEGATIVE Influenza Type B (PCR) NEGATIVE RSV RNA Qual (PCR) NEGATIVE SARS-CoV-2 RNA (RT-PCR) NEGATIVE 09/02/24 10:56 MCV MCH MCHC RDW Plt Count MPV Immature Gran % (Auto) Neut % (Auto) Lymph % (Auto) [place] % (Auto) Eos % (Auto) Baso % (Auto) Lymph # (Auto) [place] # (Auto) Eos # (Auto) Baso # (Auto) Abs Immat Gran (auto) Absolute Neuts (auto) Absolute Nucleated RBC Nucleated RBC % (auto) Neutrophils % (Manual) Band Neutrophils % Lymphocytes % (Manual) Monocytes % (Manual) Abs Neuts (Manual) Lymphocytes # (Manual) Monocytes # (Manual) Toxic Vacuolation Platelet Estimate Plt Morphology Comment RBC Morphology D-Dimer High Sensitivty Anion Gap Estim Creat Clear Calc Estimated GFR Random Glucose Lactic Acid Calcium Magnesium Total Bilirubin Direct Bilirubin AST ALT Alkaline Phosphatase Troponin I High Sens 28.6 H Total Protein Albumin Lipase Urine Color Yellow Urine Appearance Clear Urine pH 6.5 Ur Specific [place] 1.020 Urine Protein Negative Urine Glucose (UA) Negative Urine Ketones Negative Urine Blood Negative Urine Nitrite Negative Ur Leukocyte Esterase Negative Influenza Type A (PCR) Influenza Type B (PCR) RSV RNA Qual (PCR) SARS-CoV-2 RNA (RT-PCR) <Jumana Oneal PA-C - Last Filed: 09/02/24 15:42> Imaging Radiologist's Impressions: Impressions Chest X-Ray 09/02/24 08:20 IMPRESSION: No evidence of acute pulmonary process. Electronically signed by: Tre Taylor MD 09/02/2024 08:50 AM EDT RP Chest CTA 09/02/24 09:42 IMPRESSION: No evidence of filling defects to suggest pulmonary embolism. Opacities in the posterior aspect bilateral lungs, probably reflecting atelectasis versus infectious/inflammatory process. VTE: Negative Fleischner guidelines were followed. Electronically signed by: Tre Taylor MD 09/02/2024 01:43 PM EDT RP Abdomen/Pelvis CT 09/02/24 10:08 IMPRESSION: No acute intra-abdominal findings identified. Cause of the patient's symptoms has not been determined by CT. Clinically correlate. Additional/follow-up imaging as clinically indicated. No acute bowel inflammatory changes. Appendix appears unremarkable. Fleischner guidelines were followed. Electronically signed by: Tre Taylor MD 09/02/2024 01:44 PM EDT RP <Jumana Oneal PA-C - Last Filed: 09/02/24 15:42> Assessment and Plan (1) Sepsis: Status: Acute <GUADALUPE Rojas Last Filed: 09/02/24 15:42> (2) Bandemia: Status: Acute <GUADALUPE Rojas Last Filed: 09/02/24 15:42> 64 yo F with a past medical history including autonomic dysfunction, UTIs, pyelonephritis, pacemaker, anxiety, ?reactive airway disease, who reported to the ED today for chills, nausea, vomiting, headache and fever. recently started on macrobid for UTI by PCP after cx results were back. hypotensive in [facility], given stress dose, 100mg hydrocortisone and BP regulated. sepsis - bandemia, hypotensive (may be related to autonomic dysfunction), fever - UA normal but dx'd with UTI yesterday with +cx per pt with PCP (no access), cx today pending - lactate normal - blood cultures x2 pending - admit for IV abx, doxycycline and ceftriaxone - hold hydrocortisone, restart fludrocortisone 0.1mg QD, consider stress dose taper of HCT if hypotension returns (50mg Q8H x3 doses, 25mg Q8H x3 doses, then 10mg Q8H x3 doses) new O2 requirement and DOLL - ?early pneumonia - d dimer elevated - CTA negative - CT abd and chest CT negative - EKG with T wave inversions on VII, VIII, AvF, and V4-V6, trops x2 mild elevation, no sig change - COVID/flu/RSV neg - add procalcitonin Pt with sepsis and new O2 requirement, possible early pneumonia, need for admission for atleast 2 midnights stay for IV abx. <Jumana Oneal PA-C - Last Filed: 09/02/24 15:42> 64 yo F with a past medical history including autonomic dysfunction, UTIs, pyelonephritis, pacemaker, anxiety, ?reactive airway disease, who reported to the ED today for chills, nausea, vomiting, headache and fever. recently started on macrobid for UTI by PCP after cx results were back. hypotensive in [facility], given stress dose, 100mg hydrocortisone and BP regulated. sepsis - bandemia, hypotensive (may be related to autonomic dysfunction), fever - UA normal but dx'd with UTI yesterday with +cx per pt with PCP (no access), cx today pending - lactate normal - blood cultures x2 pending - admit for IV abx, doxycycline and ceftriaxone - hold hydrocortisone, restart fludrocortisone 0.1mg QD, consider stress dose taper of HCT if hypotension returns (50mg Q8H x3 doses, 25mg Q8H x3 doses, then 10mg Q8H x3 doses) new O2 requirement and DOLL - ?early pneumonia - d dimer elevated - CTA negative - CT abd and chest CT negative - EKG with T wave inversions on VII, VIII, AvF, and V4-V6, trops x2 mild elevation, no sig change - COVID/flu/RSV neg - add procalcitonin Pt with sepsis and new O2 requirement, possible early pneumonia, need for admission for atleast 2 midnights stay for IV abx. Addendum to history and physical by the advanced practice provider, LIZZ Chanel I interviewed and examined the patient. I discussed their presentation and management with the SHIVANI. I reviewed the history and physical and agree with the documentation, with the following additions and corrections: 64yo F with autononic dysfunction [seen at [facility] dysautonomia clinic, just restarted on fludrocortisone 0.1 mg daily yesterday] s/p PPM, hx UTIs + PNA presenting with several weeks of weak nonproductive cough but then 1 day history of fever, chills, and N/V. She initially attributed this to taking nitrofurantoin, prescribed by her PCP for a recent UTI; she's had similar reaction to nitrofurnatoin since. Found to be septic by virtue of bandemia and fever. BRiefly hypotensive to 91/51 and was given 100 mg hydrocortisone and 0.1 mg of fludrocortisone. Lactate 1.7. Found to have bilateral pneumonia. Admit to telemetry, give ceftriaxone + doxycycline, check BCx + urine antigens for Legionella/pneumococcus, trend PCT. Will request UCx results from her PCP at [facility]. Continue fludrocortisone. Do not think she needs stress-dose HCT at this point; she has been worked up for adrenal insufficiecny in the past and does not have it. <Reggie Thomason MD - Last Filed: 09/02/24 15:52> Quality Stroke Does the patient have a stroke diagnosis?: No <Jumana Oneal PA-C - Last Filed: 09/02/24 15:42> VTE Prior VTE?: No <Jumana Oneal PA-C - Last Filed: 09/02/24 15:42> VTE Risk Level:: Medical - moderate - high <Jumana Oneal PA-C - Last Filed: 09/02/24 15:42> VTE Device Contraindication: N/A - Device Ordered <GUADALUPE Rojas Last Filed: 09/02/24 15:42> VTE Drug Contraindication: N/A - Med Ordered <Jumana Oneal PA-C - Last Filed: 09/02/24 15:42>
[2024-09-02 15:40] LABS: Procalcitonin 0.44 ng/mL
--- NOTE | 2024-09-02 15:45 | PHA.MEDREC ---
Addendum entered by Dolly Kendrick brenda 09/02/24 15:56: REVIEWED Original Note: Pharmacy Consult ? Medication Reconciliation Pharmacy has completed the medication reconciliation. Confirmed medications with patient. Patient confirmed she has an Estradiol cream and a Fludrocortisone 0.1mg tab at home that she has not started yet. She confirmed she has been taking Lorazepam 0.5mg tabs once daily instead of 1 BID but she states if she absolutely needs another one she will do it BID but states its been a long time since I've had to do that. She states she stopped taking the Losartan 25mg tab July 14 due to her blood pressure dropping a lot and thinks it could be a factor of that medication and the fact that he stopped drinking around that time. She also was taking a Nitofurantoin monohydrate tab but states she took one last night and woke up this monring around 3-3:30am to body chills and her whole body was tremouring and she states this has happened once before when she took the same medication and ended up in the ER again. She claims she took her medications last night @2200
[2024-09-02] MEDS: Enoxaparin Sodium 40 MG/0.4 ML SYRINGE SUBCUT (16:25)
--- NOTE | 2024-09-02 20:16 | PC.NURSE ---
Addendum entered by Gertrudis Zamora RN 09/02/24 21:14: Pt adamant she only took 1 ativan, but at home she normally takes 2. Messaged and ok to give ativan. Original Note: Pt reporting to tech feeling anxious, requesting ativan. made aware and ordered medication. While waiting for meds to be verified by pharmacy pt caught by tech taking home medications. Pt took home ativan. Pt informed by t/w she can not take medications from home, that pharmacy was working on verifying medication to get ordered. All home medications confiscated to be inventoried and sent to pharmacy. MD made aware. Pt very tearful stating that she heard men talking and she is very triggered by men. This RN apologized to pt that she is feeling this way, there had been no men in her rroom but pt had heard male voices in the hallway compensating. Pt educated she could not be taking home mediations.
[2024-09-02] MEDS: traZODone HCL 25 MG HALFTAB 75 MG PO (21:18)
[2024-09-02] MEDS: LORazepam 0.5 MG TABLET PO (21:18)
[2024-09-02] MEDS: Escitalopram Oxalate 10 MG TABLET PO (21:18)
--- NOTE | 2024-09-03 | ECG_ITS ---
Test Reason : DYSRYTHMIA Blood Pressure : / mmHG Vent. Rate : 055 BPM Atrial Rate : 055 BPM P-R Int : 266 ms QRS Dur : 088 ms QT Int : 388 ms P-R-T Axes : 074 069 -28 degrees QTc Int : 371 ms Atrial-paced rhythm with prolonged AV conduction Nonspecific ST and T wave abnormality Abnormal ECG When compared with ECG of 02-SEP-2024 08:52, Electronic atrial pacemaker has replaced Sinus rhythm Nonspecific T wave abnormality has replaced inverted T waves in Lateral leads QT has shortened Referred By: Reggie Thomason Electronically Signed By:LEXI PINEDA MD
[2024-09-03 05:05] LABS: MANUAL DIFF FLAG NO
[2024-09-03 05:06] LABS: Basophils Percent Auto 0.2 % (0-2); Eosinophils Percent Auto 0.4 % (0-4); Hematocrit 34.4 % (37.0-47.0); Hemoglobin 11.5 g/dl (12.0-16.0); Imm Gran Abs Auto 0.01 X10*3/uL (0.00-0.03); Imm Gran Pct Auto 0.2 % (0.0-0.4); Lymphocytes Absolute Auto 0.9 X10*3/uL (1.2-4.9); Lymphocytes Percent Auto 15.2 % (20-40); Mean Corpuscular HGB Conc 33.4 g/dl (31.0-35.0); Mean Corpuscular Hemoglobin 30.2 pg (27.0-33.0); Mean Corpuscular Volume 90.3 fL (80.0-98.0); Mean Platelet Volume 9.4 fL (9.4-12.3); Monocytes Absolute Auto 0.5 X10*3/uL (0.1-1.2); Neutrophils Absolute Auto 4.3 x10*3/uL (2.0-8.3); Platelet Count 143 X10*3/uL (160-400); Red Blood Count 3.81 X10*6/uL (4.20-5.50); Red Cell Distribution Width 11.9 % (11.0-16.0); White Blood Count 5.7 X10*3/uL (4.8-10.8)
[2024-09-03] MEDS: 0.9 % Sodium Chloride Flush 3 ML SYRINGE IVFLUSH ×4 (05:17→21:10)
[2024-09-03 05:22] LABS: Anion Gap 11 (12-20); Blood Urea Nitrogen 11 mg/dL (9-16); Calcium 8.9 mg/dL (8.4-10.2); Carbon Dioxide 25 mmol/L (22-29); Chloride 108 mmol/L (96-108); Creatinine Clr Calc Pharmacy 68.9; Estimated Glomerular Filt Rate > 60; Glucose Random 98 mg/dL (60-115); Potassium 3.2 mmol/L (3.3-5.1); Sodium 141 mmol/L (135-145)
--- NOTE | 2024-09-03 07:47 | PC.NURSE ---
Pt having change in rhythm, SR to A paced but pacer spikes did not look to be aligned. Pictures sent to . Repeat EKG showing A paced rhythm. Multiple strips printed, continuous heart monitor on.
[2024-09-03 08:04] VITALS: BP 102/67; PULSE 84; RESP 18; TEMP 37.1; O2SAT 97
--- NOTE | 2024-09-03 08:06 | PC.NURSE ---
Fludrocorisone brought from pharmacy, BP 121/74, patient asking to wait a few more minutes before deciding if she will take it
[2024-09-03] MEDS: Fludrocortisone Acetate 0.1 MG TABLET PO (08:24)
[2024-09-03 09:05] VITALS: BP 111/57; PULSE 69; RESP 18; TEMP 36.2; O2SAT 97
[2024-09-03 09:20] LABS: Magnesium 2.1 mg/dL (1.6-2.6)
[2024-09-03] MEDS: Aspirin Enteric Coated 81 MG TABLET.DR PO (09:28)
[2024-09-03] MEDS: cefTRIAXone sodium 1 GM in 0.9 % Sodium Chloride 50 ML IV (10:21)
--- NOTE | 2024-09-03 11:20 | MHC.CM.PN ---
CM MET WITH PT AT BEDSIDE. 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 PT HAS A CANE THAT SHE USES PRN. +HCP PCP EDIE ZAMUDIO AT [facility]. DP: HOME , NO SERVICES IS THE GOAL. PT MAY NEED ASSIST WITH A RIDE HOME ([facility] SHUTTLE VS LYFT RIDE) CM WILL CONTINUE TO FOLLOW FOR ANY CHANGE TO DC PLAN/NEEDS.
--- NOTE | 2024-09-03 12:33 | P.PNIM_ITS ---
Subjective Subjective Date of Service: 09/03/24 Interval History: feeling better, just on 1/2 L O2 fever resolved minimal cough no N/V Review of Systems Review of Systems: Yes all other systems are reviewed and are negative Physical Exam 2 Vital Signs: Vital Signs: Last Vital Signs Temp 97.1 F 09/03/24 09:05 Pulse 69 09/03/24 09:05 Resp 18 09/03/24 09:05 BP 111/57 L 09/03/24 09:05 Pulse Ox 97 09/03/24 09:05 O2 Del Method Room Air 09/03/24 09:05 O2 Flow Rate 2 09/03/24 08:04 BMI result Body Mass Index 23.2 Gen: in no acute distress HEENT: sclera anicteric, moist mucus membranes Neck: supple Lungs: diminished Heart: regular rate and rhythm, no murmurs Abd: soft, non-tender, non-distended Ext: no edema Skin: warm/well-perfused Neuro: alert and oriented x3, no focal findings Psych: appropriate affect Objective Data Active Medications Acetaminophen (Acetaminophen 325 Mg Tablet) 650 mg PO Q6H PRN PRN Reason: Pain, Mild (Pain Scale 1-3), fever or headache Aspirin (Aspirin Enteric Coated 81 Mg Tablet.) 81 mg PO DAILY [facility] Last Admin: 09/03/24 09:28 Dose: 81 mg Documented By: HAMILTON Calcium Carbonate (Calcium Carbonate 750 Mg Tab.Chew) 750 mg PO Q4H PRN PRN Reason: Heartburn Enoxaparin Sodium (Enoxaparin Sodium 40 Mg/0.4 Ml Syringe) 40 mg SUBCUT Q24H [facility] Last Admin: 09/02/24 16:25 Dose: 40 mg Documented By: JANNETH Escitalopram Oxalate (Escitalopram Oxalate 10 Mg Tablet) 10 mg PO BEDTIME [facility] Last Admin: 09/02/24 21:18 Dose: 10 mg Documented By: YASIR Fludrocortisone Acetate (Fludrocortisone Acetate 0.1 Mg Tablet) 0.1 mg PO DAILY@0600 [facility] Last Admin: 09/03/24 08:24 Dose: 0.1 mg Documented By: ALISON Doxycycline Hyclate 100 mg/ (Sodium Chloride) 250 mls @ 166.67 mls/hr IV Q12H [facility] Ceftriaxone Sodium 1 gm/ (Sodium Chloride) 50 mls @ 100 mls/hr IV Q24H [facility] Last Infusion: 09/03/24 10:52 Dose: Infused Documented By: HAMILTON Magnesium Hydroxide (Milk Of Magnesia 30 Ml Oral.Susp) 30 ml PO DAILY PRN PRN Reason: Constipation Melatonin (Melatonin 3 Mg Tablet) 6 mg PO BEDTIME PRN PRN Reason: Insomnia Ondansetron HCl (Ondansetron Hcl 4 Mg/2 Ml Vial) 4 mg IVPUSH Q8H PRN PRN Reason: Nausea and Vomiting Sodium Chloride (0.9 % Sodium Chloride Flush 3 Ml Syringe) 3 ml IVFLUSH QSHIFT [facility] Last Admin: 09/03/24 08:24 Dose: 3 ml Documented By: ALISON Trazodone HCl (Trazodone Hcl 25 Mg Halftab) 75 mg PO BEDTIME [facility] Last Admin: 09/02/24 21:18 Dose: 75 mg Documented By: YASIR Labs 09/03/24 04:54 09/03/24 04:54 Labs: Laboratory Results - last 24 hr 09/02/24 09/03/24 07:57 04:54 MCV 90.3 MCH 30.2 MCHC 33.4 RDW 11.9 Plt Count 143 L MPV 9.4 Immature Gran % (Auto) 0.2 Neut % (Auto) 75.0 H Lymph % (Auto) 15.2 L Bowman % (Auto) 9.0 Eos % (Auto) 0.4 Baso % (Auto) 0.2 Lymph # (Auto) 0.9 L Bowman # (Auto) 0.5 Eos # (Auto) 0.0 Baso # (Auto) 0.0 Abs Immat Gran (auto) 0.01 Absolute Neuts (auto) 4.3 Absolute Nucleated RBC 0.000 Nucleated RBC % (auto) 0.0 Anion Gap 11 L Estim Creat Clear Calc 68.9 Estimated GFR > 60 Random Glucose 98 Calcium 8.9 D Magnesium 2.1 Procalcitonin 0.44 Microbiology Microbiology Results: Microbiology 09/02/24 08:12 Blood Culture - Preliminary Blood - Venous No growth after 24 hours. 09/02/24 08:00 Blood Culture - Preliminary Blood - Venous No growth after 24 hours. Assessment and Plan (1) Sepsis: Status: Acute Plan d2 64yo F with autonomic dysfunction on fludrocortisone and s/p PPM presenting with severeal weeks of cough and 1 day of fever, chills, nausea, and vomiting. Recently on nitrofurantoin for UTI. Hypotensive in ED and given fludrocortisone and hydrocortisone with normalization of BP. Admitted for sepsis due to PNA. sepsis due to pneumonia - ceftriaxone + doxycycline 09/02-, follow BCx, trend PCT, urinary antigens for Legionella and pneumococcus pending acute hypoxic respiratory failure - supplemental O2, wean as tolerated hypoK - replete PO, recheck level in AM troponin indeterminate - flat, likely due to sepsis but will check TTE autonomic dysfunction - fludrocortisone HTN - HOLD losartan mood disorder - citalopram, trazodone VTE prophylaxis - enoxaparin dispo - likely home in next 1-2d In my clinical judgment, the patient requires continued inpatient hospitalization for the following reasons: IV ABX, hypoxia Total time managing care of this patient today: 35 minutes. Quality Stroke Does the patient have a stroke diagnosis?: No VTE Prior VTE?: No VTE Risk Level:: Medical - moderate - high VTE Device Contraindication: N/A - Device Ordered VTE Drug Contraindication: N/A - Med Ordered
--- NOTE | 2024-09-03 13:00 | CA_ITS ---
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 Normal LV ejection fraction 55-60% with impaired relaxation filling pattern 2. Normal cardiac valvular Dopplers 3. Normal RV systolic pressure 4. Trivial pericardial effusion Findings Left Ventricle Normal left ventricular size, thickness, and systolic function. The visually estimated ejection fraction is between 55-60%. Spectral Doppler is indicative of an impaired relaxation filling pattern. E/E prime ratio is <8, consistent with normal filling pressures. Evidence suggests grade I (mild) diastolic dysfunction. Right Ventricle Normal right ventricular cavity size and systolic function. There is a pacemaker wire seen in the right ventricle. Atria The left atrium is normal in size. There is no evidence of interatrial shunt. The right atrium is normal in size. A pacemaker wire is identified in the right atrium. Aortic Valve Normal aortic valve structure and function. There is no aortic valve stenosis. There is no aortic valve regurgitation. Mitral Valve Normal mitral valve structure and function. There is trace mitral valve regurgitation. There is no mitral valve stenosis. Pulmonic Valve The pulmonic valve is likely normal. There is trace pulmonic valve regurgitation. Tricuspid Valve Normal tricuspid valve structure. There is trace tricuspid valve regurgitation. The right ventricular systolic pressure is normal. The right ventricular systolic pressure is 20 mmHg. Normal right atrial pressure. There is no evidence of pulmonary hypertension. Great Vessels All visible segments of the aorta are normal in size. The pulmonary artery was not well visualized. There is no dilatation of the ascending aorta measuring 3.10 cm. Venous The inferior vena cava is normal in size and collapses greater than 50% with inspiration. Pericardium/Pleural There is a trivial pericardial effusion. Prior Study Comparison No prior study available for comparison. Measurements 2D Linear Measurements IVSd: 0.90 0.6-0.9/0.6-1.0 cm LVIDd: 4.88 3.9-5.3/4.2-5.9 cm LVIDd Index: 2.94 2.4-3.2/2.2-3.1 cm/m2 LVIDs: 3.16 2.0-3.6 cm LVPWd: 0.88 0.7-1.1 cm LA Diam: 3.70 2.7-3.8/3.0-4.0 cm LAIDs Index: 2.23 1.5-2.3 cm/m2 LV Mass: 185.53 67-162/88-224 g LV Mass Index: 111.77 43-95/49-115 g/m2 LVOT Diam: 1.90 3.0+(-)1.3 cm 2D Systolic Function EF 4C: 52.50 >55% EF 2C: 64.40 >55% EF BiP: 59.30 >55% Mitral Valve E'Lateral: 9.90 E'Medial: 7.62 Aortic Valve AoV Pk Cesar: 1.53 AoV Pk Grad: 9.00 ANIBAL: 2.23 LVOT LVOT Pk Cesar: 1.20 LVOT Mn Cesar: 0.81 LVOT VTI: 0.23 LVOT Pk Grad: 6.00 LVOT Mn Grad: 3.00 LVOT Diam: 1.90 LVOT Area: 2.84 Diastolic Function E'Medial: 7.62 E' Laterial: 9.90 Right Ventricle TAPSE (mm): 21.40 TVS' Cesar: 11.70 Tricuspid Valve TR Pk Cesar: 2.06 TR Pk Grad: 17.00 RA Press: 3.00 RVSP: 20.00 Great Vessels Aorta Sinus of Valsalva: 2.70 2.0-3.5 cm Ao Asc: 3.10 2.1-3.4 cm Updated in Other Vendor System with Status of Final Dwayne Melendez MD electronically signed on 09/03/2024 4:05:43 PM with status of Final
[2024-09-03 15:20] VITALS: BP 121/58; PULSE 59; RESP 18; TEMP 36.2; O2SAT 94
[2024-09-03] MEDS: Doxycycline Hyclate 100 MG in 0.9 % Sodium Chloride 250 ML 166.67 MG IV (16:13)
[2024-09-03] MEDS: Enoxaparin Sodium 40 MG/0.4 ML SYRINGE SUBCUT (16:16)
[2024-09-03 19:40] VITALS: BP 127/74; PULSE 63; RESP 16; TEMP 36.6; O2SAT 93
[2024-09-03] MEDS: LORazepam 1 MG TABLET PO (21:10)
[2024-09-03] MEDS: Escitalopram Oxalate 10 MG TABLET PO (21:10)
[2024-09-03] MEDS: traZODone HCL 25 MG HALFTAB 75 MG PO (21:10)
[2024-09-04] MEDS: Doxycycline Hyclate 100 MG in 0.9 % Sodium Chloride 250 ML 166.67 MG IV ×2 (02:57→15:45)
[2024-09-04 03:04] VITALS: BP 132/72; PULSE 63; RESP 16; TEMP 36.1; O2SAT 94
[2024-09-04] MEDS: Fludrocortisone Acetate 0.1 MG TABLET PO (04:50)
[2024-09-04 05:58] LABS: Hematocrit 32.1 % (37.0-47.0); Hemoglobin 10.9 g/dl (12.0-16.0); Mean Corpuscular Hemoglobin 30.5 pg (27.0-33.0); Mean Corpuscular Volume 89.9 fL (80.0-98.0); Mean Platelet Volume 9.7 fL (9.4-12.3); Platelet Count 178 X10*3/uL (160-400); Red Blood Count 3.57 X10*6/uL (4.20-5.50); White Blood Count 4.2 X10*3/uL (4.8-10.8)
[2024-09-04 06:13] LABS: Alanine Aminotransferase 33 U/L (0-31); Albumin Level 3.6 g/dL (3.5-5.0); Alkaline Phosphatase 72 U/L (39-117); Anion Gap 11 (12-20); Aspartate Amino Transferase 21 U/L (5-31); Bilirubin Total 0.3 mg/dL (0.0-1.0); Blood Urea Nitrogen 12 mg/dL (9-16); Calcium 8.9 mg/dL (8.4-10.2); Carbon Dioxide 27 mmol/L (22-29); Chloride 108 mmol/L (96-108); Estimated Glomerular Filt Rate > 60; Glucose Random 93 mg/dL (60-115); Magnesium 2.1 mg/dL (1.6-2.6); Potassium 3.3 mmol/L (3.3-5.1); Sodium 143 mmol/L (135-145); Total Protein 5.8 g/dL (6.5-8.0)
--- NOTE | 2024-09-04 06:28 | PC.NURSE ---
Pt has IV doxycycline running, complaining of IV site pain- both accesses in L hand and L AC, no signs of infiltration, no redness or swelling, IVs are not leaking as flushed with no issue, Both peripheral sites removed, New IV access placed in L forearm 20G by client retention specialist, doxy infused with no issues.
[2024-09-04 06:29] LABS: Procalcitonin 0.57 ng/mL
[2024-09-04 07:18] VITALS: BP 132/75; PULSE 60; RESP 16; TEMP 36; O2SAT 95
[2024-09-04 08:12] LABS: Immature Retic Fraction 16.1 % (3.0-15.9); Retic HGB Equivalent 31.2 pg (30.0-35.0); Reticulocyte Percent 1.9 % (0.5-1.8); Reticulocytes Absolute 0.065 X10*6/uL (0.026-0.095)
[2024-09-04 08:25] LABS: Iron 80 mcg/dL (30-160); Lactate Dehydrogenase 191 U/L (122-220); Percent Iron Saturation 35 % (15-50); Total Iron Binding Capacity 231 mcg/dL (228-428); Unsaturated Iron Binding 151 ug/dL
[2024-09-04] MEDS: cefTRIAXone sodium 1 GM in 0.9 % Sodium Chloride 50 ML IV (08:34)
[2024-09-04] MEDS: 0.9 % Sodium Chloride Flush 3 ML SYRINGE IVFLUSH ×3 (08:34→20:17)
[2024-09-04] MEDS: Aspirin Enteric Coated 81 MG TABLET.DR PO (08:34)
[2024-09-04 08:39] LABS: Ferritin 344 ng/mL (10-250)
[2024-09-04 10:22] VITALS: BP 132/75; PULSE 60; O2SAT 95
--- NOTE | 2024-09-04 10:28 | MHC.CM.PN ---
EMR REVIEWED AND PER MD ROUNDS, PT IS NOT MEDICALLY CLEARED FOR DC HOME.(IV ABT, WEAN OFF 02) PT WAS SEEN BY P.T., NO THERAPY INDICATED AT THIS TIME. CM WILL CONTINUE TO FOLLOW FOR ANY CHANGE TO DC PLAN/NEEDS.
--- NOTE | 2024-09-04 12:49 | HO.PM.IMPN ---
Subjective Subjective Date of Service: 09/04/24 Interval History: feeling better, not dyspneic, off O2, minimal cough Review of Systems Review of Systems: Yes all other systems are reviewed and are negative Physical Exam Vital Signs: Vital Signs: Last Vital Signs Temp 96.8 F 09/04/24 07:18 Pulse 60 09/04/24 10:22 Resp 16 09/04/24 07:18 BP 132/75 09/04/24 10:22 Pulse Ox 95 09/04/24 10:22 O2 Del Method Room Air 09/04/24 07:18 O2 Flow Rate 2 09/03/24 08:04 BMI result Body Mass Index 23.2 Gen: in no acute distress HEENT: sclera anicteric, moist mucus membranes Neck: supple Lungs: clear to auscultation bilaterally Heart: regular rate and rhythm, no murmurs Abd: soft, non-tender, non-distended Ext: no edema Skin: warm/well-perfused Neuro: alert and oriented x3, no focal findings Psych: appropriate affect Objective Data Active Medications Acetaminophen (Acetaminophen 325 Mg Tablet) 650 mg PO Q6H PRN PRN Reason: Pain, Mild (Pain Scale 1-3), fever or headache Aspirin (Aspirin Enteric Coated 81 Mg Tablet.) 81 mg PO DAILY [facility] Last Admin: 09/04/24 08:34 Dose: 81 mg Documented By: HAMILTON Calcium Carbonate (Calcium Carbonate 750 Mg Tab.Chew) 750 mg PO Q4H PRN PRN Reason: Heartburn Enoxaparin Sodium (Enoxaparin Sodium 40 Mg/0.4 Ml Syringe) 40 mg SUBCUT Q24H [facility] Last Admin: 09/03/24 16:16 Dose: 40 mg Documented By: HAMILTON Escitalopram Oxalate (Escitalopram Oxalate 10 Mg Tablet) 10 mg PO BEDTIME [facility] Last Admin: 09/03/24 21:10 Dose: 10 mg Documented By: HEATHER Fludrocortisone Acetate (Fludrocortisone Acetate 0.1 Mg Tablet) 0.1 mg PO DAILY@0600 [facility] Last Admin: 09/04/24 04:50 Dose: 0.1 mg Documented By: HEATHER Doxycycline Hyclate 100 mg/ (Sodium Chloride) 250 mls @ 166.67 mls/hr IV Q12H [facility] Last Infusion: 09/04/24 04:51 Dose: Infused Documented By: HEATHER Ceftriaxone Sodium 1 gm/ (Sodium Chloride) 50 mls @ 100 mls/hr IV Q24H [facility] Last Infusion: 09/04/24 09:21 Dose: Infused Documented By: HAMILTON Lorazepam (Lorazepam 1 Mg Tablet) 1 mg PO BEDTIME PRN PRN Reason: anxiety/restlessness Last Admin: 09/03/24 21:10 Dose: 1 mg Documented By: HEATHER Magnesium Hydroxide (Milk Of Magnesia 30 Ml Oral.Susp) 30 ml PO DAILY PRN PRN Reason: Constipation Melatonin (Melatonin 3 Mg Tablet) 6 mg PO BEDTIME PRN PRN Reason: Insomnia Ondansetron HCl (Ondansetron Hcl 4 Mg/2 Ml Vial) 4 mg IVPUSH Q8H PRN PRN Reason: Nausea and Vomiting Sodium Chloride (0.9 % Sodium Chloride Flush 3 Ml Syringe) 3 ml IVFLUSH QSHIFT [facility] Last Admin: 09/04/24 08:34 Dose: 3 ml Documented By: HAMILTON Trazodone HCl (Trazodone Hcl 25 Mg Halftab) 75 mg PO BEDTIME [facility] Last Admin: 09/03/24 21:10 Dose: 75 mg Documented By: HEATHER Labs 09/04/24 05:06 09/04/24 05:06 Labs: Laboratory Results - last 24 hr 09/04/24 05:06 MCV 89.9 MCH 30.5 MCHC 34.0 RDW 12.0 Plt Count 178 MPV 9.7 Absolute Nucleated RBC 0.000 Nucleated RBC % (auto) 0.0 Absolute Retic 0.065 Percent Retic 1.9 H Immature Retic Fraction 16.1 H Retic Hgb Equivalent 31.2 Anion Gap 11 L Estim Creat Clear Calc 70.0 Estimated GFR > 60 Random Glucose 93 Calcium 8.9 Magnesium 2.1 Iron 80 TIBC 231 % Saturation 35 Unsat Iron Binding 151 Ferritin 344 H Total Bilirubin 0.3 AST 21 ALT 33 H Alkaline Phosphatase 72 Lactate Dehydrogenase 191 Total Protein 5.8 L Albumin 3.6 Procalcitonin 0.57 Microbiology Microbiology Results: Microbiology 09/02/24 08:12 Blood Culture - Preliminary Blood - Venous No growth after 48 hours. 09/02/24 08:00 Blood Culture - Preliminary Blood - Venous No growth after 48 hours. Assessment and Plan (1) Sepsis: Status: Acute Plan d3 64yo F with autonomic dysfunction on fludrocortisone and s/p PPM presenting with severeal weeks of cough and 1 day of fever, chills, nausea, and vomiting. Recently on nitrofurantoin for UTI. Hypotensive in ED and given fludrocortisone and hydrocortisone with normalization of BP. Admitted for sepsis due to PNA. sepsis due to pneumonia - ceftriaxone + doxycycline 09/02-, follow BCx, trend PCT, urinary antigens for Legionella and pneumococcus pending acute hypoxic respiratory failure - resolved hypoK - repleted troponin indeterminate - flat, likely due to sepsis - TTE 09/03/24: 1. Normal LV ejection fraction 55-60% with impaired relaxation filling pattern 2. Normal cardiac valvular Dopplers 3. Normal RV systolic pressure 4. Trivial pericardial effusion autonomic dysfunction - fludrocortisone HTN - held losartan mood disorder - citalopram, trazodone VTE prophylaxis - enoxaparin dispo - likely home tomorrow In my clinical judgment, the patient requires continued inpatient hospitalization for the following reasons: IV ABX, sepsis, hypoxia Total time managing care of this patient today: 35 minutes. Quality Stroke Does the patient have a stroke diagnosis?: No VTE Prior VTE?: No VTE Risk Level:: Medical - moderate - high VTE Device Contraindication: N/A - Device Ordered VTE Drug Contraindication: N/A - Med Ordered
[2024-09-04 15:12] VITALS: BP 136/80; PULSE 63; RESP 18; TEMP 36.2; O2SAT 94
[2024-09-04] MEDS: Enoxaparin Sodium 40 MG/0.4 ML SYRINGE SUBCUT (15:19)
[2024-09-04 19:52] VITALS: BP 136/67; PULSE 62; RESP 18; TEMP 36.2; O2SAT 95
[2024-09-04] MEDS: traZODone HCL 25 MG HALFTAB 75 MG PO (20:16)
[2024-09-04] MEDS: Escitalopram Oxalate 10 MG TABLET PO (20:16)
[2024-09-04] MEDS: LORazepam 1 MG TABLET PO (20:23)
[2024-09-04 21:27] VITALS: RESP 16
[2024-09-05 00:35] VITALS: BP 104/66; PULSE 91; RESP 18; TEMP 36.3; O2SAT 93
[2024-09-05] MEDS: Doxycycline Hyclate 100 MG in 0.9 % Sodium Chloride 250 ML 166.67 MG IV (03:56)
[2024-09-05 04:00] VITALS: BP 132/64; PULSE 63; RESP 18; TEMP 36.1; O2SAT 93
[2024-09-05 07:20] LABS: Hematocrit 33.4 % (37.0-47.0); Hemoglobin 11.5 g/dl (12.0-16.0); Mean Corpuscular HGB Conc 34.4 g/dl (31.0-35.0); Mean Corpuscular Hemoglobin 30.4 pg (27.0-33.0); Mean Corpuscular Volume 88.4 fL (80.0-98.0); Mean Platelet Volume 9.3 fL (9.4-12.3); Platelet Count 182 X10*3/uL (160-400); Red Blood Count 3.78 X10*6/uL (4.20-5.50); Red Cell Distribution Width 11.8 % (11.0-16.0); White Blood Count 3.5 X10*3/uL (4.8-10.8)
[2024-09-05 07:36] LABS: Anion Gap 13 (12-20); Blood Urea Nitrogen 13 mg/dL (9-16); Calcium 9.5 mg/dL (8.4-10.2); Carbon Dioxide 28 mmol/L (22-29); Chloride 107 mmol/L (96-108); Estimated Glomerular Filt Rate > 60; Glucose Random 92 mg/dL (60-115); Potassium 3.5 mmol/L (3.3-5.1); Sodium 144 mmol/L (135-145)
[2024-09-05 07:50] VITALS: BP 141/82; PULSE 63; RESP 17; TEMP 36.2; O2SAT 93
[2024-09-05 07:54] LABS: Procalcitonin 0.28 ng/mL
[2024-09-05 08:05] LABS: Folate 9.2 ng/mL (> or = 4.0); Vitamin B12 582 pg/mL (200-900)
[2024-09-05] MEDS: Aspirin Enteric Coated 81 MG TABLET.DR PO (09:24)
[2024-09-05] MEDS: 0.9 % Sodium Chloride Flush 3 ML SYRINGE IVFLUSH (09:25)
[2024-09-05] MEDS: cefTRIAXone sodium 1 GM VIAL IVPUSH (09:25)
--- NOTE | 2024-09-05 11:55 | PM.DS ---
DS: Providers Provider Date of Service: 09/05/24 Date of admission: 09/02/24 15:21 Date of discharge: 09/05/24 Primary care physician: Ubaldo Bonilla DS: Diagnosis Discharge Diagnosis (1) Sepsis: Status: Acute (2) Pneumonia: Status: Acute (3) Acute respiratory failure with hypoxia: Status: Acute DS: Summary Hospital Course Hospital Course: From the history and physical by the admitting hospitalist, LIZZ Rojas, 09/02/24: 64 yo F with a past medical history including autonomic dysfunction, UTIs, pyelonephritis, pacemaker, anxiety, ?reactive airway disease, who reported to the ED today for chills, nausea, vomiting, headache and fever. She reports she was diagnosed with a UTI recently by her PCP and was started on Macrobid 5 days later after receiving culture results. She reports in the past though when she took Macrobid she had a terrible reaction including chills, vomiting, nausea, and headache. She was treated for UTI in early June and reports that her symptoms have been persistent since however intermittent. Over the past few days her symptoms have become more persistent including urgency and dysuria in the morning which improves with significant hydration throughout the day. She also reports that she has had a chronic sinus infection for a few weeks and has not had any treatment for this aside from using a Neti pot at home. She has new dyspnea on exertion but denies any chest pain cough tachycardia or lower extremity edema. She does wear compression stockings to prevent any edema. She also has chronic constipation. Yesterday she was prescribed fludrocortisone by her autonomic dysfunction provider in [place]. She has not yet taken this. 64yo F with autonomic dysfunction on fludrocortisone and s/p PPM presenting with severeal weeks of cough and 1 day of fever, chills, nausea, and vomiting. She was recently on nitrofurantoin for UTI due to Citrobacter freundii [which was resistant to amox/clav and cefazolin; sensitive to cefepime, ceftazidime, ceftriaxone, ciprofloxacin, gentamicin, impienem, levofloxacin, nitrofurantoin, piperacillin-tazobactam, tobramycin, and trimethoprim/sulfamethoxazole]. She was briefly hypotensive in ED and given IV fluids, fludrocortisone and hydrocortisone with normalization of BP. She was mildly hypoxic, requiring 2L O2 via NC. RSV/influenza/Covid PCR was negative. She was admitted to the medical-surgical unit for sepsis due to PNA. She was treated with ceftriaxone and doxycycline for 3 days with clinical improvement. She was weaned off oxygen. Blood cultures were negative. Urinary antigens for Legionella and pneumococcus are pending at the time of discharge. Troponin was slightly elevated in the indeterminate range but she had no anginal symptoms or ischemic EKG changes. Troponin was flat on recheck and TTE 09/03/24 showed normal LVEF 55-60% with impaired relaxation but no regional wall motion abnormalities. Likely troponin elevation was due to demand from sepsis. She improved and was discharged on cefuroxime plus doxycycline for 4 days. Time Attestation Discharge Coordination Time (in mins): 45 Quality: Safe Use of Opioids Does Pt have an Active Cancer Diagnosis on the Problem List?: No Quality: Stroke Does the patient have a stroke diagnosis?: No Physical Exam Vital Signs: Vital Signs: Last Vital Signs Temp 97.1 F 09/05/24 07:50 Pulse 63 09/05/24 07:50 Resp 17 09/05/24 07:50 BP 141/82 H 09/05/24 07:50 Pulse Ox 93 09/05/24 07:50 O2 Del Method Room Air 09/05/24 07:50 O2 Flow Rate 2 09/03/24 08:04 BMI result Body Mass Index 23.2 Gen: in no acute distress HEENT: sclera anicteric, moist mucus membranes Neck: supple Lungs: clear to auscultation bilaterally Heart: regular rate and rhythm, no murmurs Abd: soft, non-tender, non-distended Ext: no edema Skin: warm/well-perfused Neuro: alert and oriented x3, no focal findings Psych: appropriate affect DS: Data Data Completed and Pending Completed studies during hospitalization [Text1]: ITS Impressions Chest X-Ray 09/02/24 08:20 IMPRESSION: No evidence of acute pulmonary process. Electronically signed by: Tre Taylor MD 09/02/2024 08:50 AM EDT Chest CTA 09/02/24 09:42 IMPRESSION: No evidence of filling defects to suggest pulmonary embolism. Opacities in the posterior aspect bilateral lungs, probably reflecting atelectasis versus infectious/inflammatory process. VTE: Negative Fleischner guidelines were followed. Electronically signed by: Tre Taylor MD 09/02/2024 01:43 PM EDT RP Abdomen/Pelvis CT 09/02/24 10:08 IMPRESSION: No acute intra-abdominal findings identified. Cause of the patient's symptoms has not been determined by CT. Clinically correlate. Additional/follow-up imaging as clinically indicated. No acute bowel inflammatory changes. Appendix appears unremarkable. Fleischner guidelines were followed. Electronically signed by: Tre Taylor MD 09/02/2024 01:44 PM EDT RP Laboratory Tests 09/02/24 09/02/24 09/02/24 07:56 07:57 09:15 WBC 7.3 RBC 4.25 Hgb 13.1 Hct 38.0 MCV 89.4 MCH 30.8 MCHC 34.5 RDW 11.9 Plt Count 156 L MPV 9.3 L Immature Gran % (Auto) Cancelled Neut % (Auto) Cancelled Lymph % (Auto) Cancelled [place] % (Auto) Cancelled Eos % (Auto) Cancelled Baso % (Auto) Cancelled Lymph # (Auto) Cancelled [place] # (Auto) Cancelled Eos # (Auto) Cancelled Baso # (Auto) Cancelled Abs Immat Gran (auto) Cancelled Absolute Neuts (auto) Cancelled Absolute Nucleated RBC 0.000 Nucleated RBC % (auto) 0.0 Neutrophils % (Manual) 79 H Band Neutrophils % 14 H Lymphocytes % (Manual) 6 L Monocytes % (Manual) 1 L Abs Neuts (Manual) 6.8 Lymphocytes # (Manual) 0.4 L Monocytes # (Manual) 0.1 Toxic Vacuolation PRESENT Platelet Estimate SLIGHTLY DECREASED Plt Morphology Comment NORMAL RBC Morphology NORMAL Absolute Retic Percent Retic Immature Retic Fraction Retic Hgb Equivalent D-Dimer High Sensitivty 606 Sodium 140 Potassium 3.3 Chloride 104 Carbon Dioxide 26 Anion Gap 13 BUN 13 Creatinine 0.79 Estim Creat Clear Calc 63.8 Estimated GFR > 60 Random Glucose 114 Lactic Acid 1.7 Calcium 9.8 D Magnesium 1.8 Iron TIBC % Saturation Unsat Iron Binding Ferritin Total Bilirubin 0.7 Direct Bilirubin 0.3 AST 40 H ALT 51 H Alkaline Phosphatase 103 Lactate Dehydrogenase Troponin I High Sens 26.3 H Total Protein 7.2 Albumin 4.6 Lipase 19 Vitamin B12 Folate Procalcitonin 0.44 Urine Color Urine Appearance Urine pH Ur Specific [place] Urine Protein Urine Glucose (UA) Urine Ketones Urine Blood Urine Nitrite Ur Leukocyte Esterase Influenza Type A (PCR) NEGATIVE Influenza Type B (PCR) NEGATIVE RSV RNA Qual (PCR) NEGATIVE SARS-CoV-2 RNA (RT-PCR) NEGATIVE 09/02/24 09/03/24 09/04/24 10:56 04:54 05:06 WBC 5.7 4.2 L RBC 3.81 L 3.57 L Hgb 11.5 L 10.9 L Hct 34.4 L 32.1 L MCV 90.3 89.9 MCH 30.2 30.5 MCHC 33.4 34.0 RDW 11.9 12.0 Plt Count 143 L 178 MPV 9.4 9.7 Immature Gran % (Auto) 0.2 Neut % (Auto) 75.0 H Lymph % (Auto) 15.2 L [place] % (Auto) 9.0 Eos % (Auto) 0.4 Baso % (Auto) 0.2 Lymph # (Auto) 0.9 L [place] # (Auto) 0.5 Eos # (Auto) 0.0 Baso # (Auto) 0.0 Abs Immat Gran (auto) 0.01 Absolute Neuts (auto) 4.3 Absolute Nucleated RBC 0.000 0.000 Nucleated RBC % (auto) 0.0 0.0 Neutrophils % (Manual) Band Neutrophils % Lymphocytes % (Manual) Monocytes % (Manual) Abs Neuts (Manual) Lymphocytes # (Manual) Monocytes # (Manual) Toxic Vacuolation Platelet Estimate Plt Morphology Comment RBC Morphology Absolute Retic 0.065 Percent Retic 1.9 H Immature Retic Fraction 16.1 H Retic Hgb Equivalent 31.2 D-Dimer High Sensitivty Sodium 141 143 Potassium 3.2 L 3.3 Chloride 108 108 Carbon Dioxide 25 27 Anion Gap 11 L 11 L BUN 11 12 Creatinine 0.73 0.72 Estim Creat Clear Calc 68.9 70.0 Estimated GFR > 60 > 60 Random Glucose 98 93 Lactic Acid Calcium 8.9 D 8.9 Magnesium 2.1 2.1 Iron 80 TIBC 231 % Saturation 35 Unsat Iron Binding 151 Ferritin 344 H Total Bilirubin 0.3 Direct Bilirubin AST 21 ALT 33 H Alkaline Phosphatase 72 Lactate Dehydrogenase 191 Troponin I High Sens 28.6 H Total Protein 5.8 L Albumin 3.6 Lipase Vitamin B12 Folate Procalcitonin 0.57 Urine Color Yellow Urine Appearance Clear Urine pH 6.5 Ur Specific [place] 1.020 Urine Protein Negative Urine Glucose (UA) Negative Urine Ketones Negative Urine Blood Negative Urine Nitrite Negative Ur Leukocyte Esterase Negative Influenza Type A (PCR) Influenza Type B (PCR) RSV RNA Qual (PCR) SARS-CoV-2 RNA (RT-PCR) 09/05/24 06:59 WBC 3.5 L RBC 3.78 L Hgb 11.5 L Hct 33.4 L MCV 88.4 MCH 30.4 MCHC 34.4 RDW 11.8 Plt Count 182 MPV 9.3 L Immature Gran % (Auto) Neut % (Auto) Lymph % (Auto) [place] % (Auto) Eos % (Auto) Baso % (Auto) Lymph # (Auto) [place] # (Auto) Eos # (Auto) Baso # (Auto) Abs Immat Gran (auto) Absolute Neuts (auto) Absolute Nucleated RBC 0.000 Nucleated RBC % (auto) 0.0 Neutrophils % (Manual) Band Neutrophils % Lymphocytes % (Manual) Monocytes % (Manual) Abs Neuts (Manual) Lymphocytes # (Manual) Monocytes # (Manual) Toxic Vacuolation Platelet Estimate Plt Morphology Comment RBC Morphology Absolute Retic Percent Retic Immature Retic Fraction Retic Hgb Equivalent D-Dimer High Sensitivty Sodium 144 Potassium 3.5 Chloride 107 Carbon Dioxide 28 Anion Gap 13 BUN 13 Creatinine 0.72 Estim Creat Clear Calc 70.0 Estimated GFR > 60 Random Glucose 92 Lactic Acid Calcium 9.5 D Magnesium Iron TIBC % Saturation Unsat Iron Binding Ferritin Total Bilirubin Direct Bilirubin AST ALT Alkaline Phosphatase Lactate Dehydrogenase Troponin I High Sens Total Protein Albumin Lipase Vitamin B12 582 Folate 9.2 Procalcitonin 0.28 Urine Color Urine Appearance Urine pH Ur Specific [place] Urine Protein Urine Glucose (UA) Urine Ketones Urine Blood Urine Nitrite Ur Leukocyte Esterase Influenza Type A (PCR) Influenza Type B (PCR) RSV RNA Qual (PCR) SARS-CoV-2 RNA (RT-PCR) Discharge Plan Discharge Anticipated Discharge Date/Time: 09/05/24 11:52 Patient Disposition: Home, Self-Care Discharge Diagnosis: sepsis due to pneumonia Referrals: Ubaldo Bonilla [Other] - 1 Week Discharge Medications: New fludrocortisone 0.1 mg Tablet 0.1 mg PO DAILY@0600 Qty: 1 0RF cefuroxime axetil 500 mg tablet 500 mg PO BID Qty: 8 0RF doxycycline monohydrate 100 mg tablet 100 mg PO BID Qty: 8 0RF Continued trazodone 50 mg tablet 75 mg PO BEDTIME citalopram 20 mg tablet 20 mg PO DAILY losartan 25 mg tablet 25 mg PO DAILY aspirin 81 mg Tablet,Delayed Release (Dr/Ec) 81 mg PO DAILY Discharge Orders: Discharge Order (Routine); Ordered 09/05/24 Ordered By: Reggie Thomason Diet: Advance to usual diet Activity on Discharge: As tolerated Stand Alone Forms: Patient Portal Discharge page Print Language: [place] Care Plan Goals: recovery from pneumonia Health Concerns: sepsis due to pneumonia Plan of Treatment: take cefuroxime axetil 500 mg twice daily plus doxycycline monohydrate 100 mg twice daily continue fludrocortisone as directed Please follow up with your primary care doctor within 1 week. Return to the hospital if you experience recurrent or worsening symptoms. Assessment: See Discharge Summary.
--- NOTE | 2024-09-05 13:26 | MHC.CM.PN ---
PT CLEARED TO [facility] TODAY WITH NO SERVICES PT REPORTS SHE WILL BE UNABLE TO GET HER MEDS THE PHARMACY CLOSES AT 1400 HOURS AND SHE HAS NO WAY TO GET THERE SHE STATES SHE DRIVES AND HAS A CAR, BUT IS TIRED AND DOES NOT FEEL SHE CAN DRIVE SHE IS AGREEABLE TO LYFT TRANSPORT TO THE PHARMACY AND THEN HOME SHE IS AWARE CM WILL ARRANGE THE TRANSPORT FOR HER
[2024-09-09 00:08] LABS: Strep Pneumo Ag urine Not Detected (Not Detected)
[2024-09-10 03:13] LABS: Legionella Ag Urine Not Detected (Not Detected)
== END 2024-09-05 13:40 | disposition home or self-care (01) | DRG 720 ==
LOC: HO.ED 08:58 → HO.EDOVER 15:52 → HO.S3 09-03 07:37
PROVIDERS: Admitting Provider Physician Assistant; Emergency Provider Emergency Medicine; PCP Physician Assistant; Visit Provider Family Medicine
DX: A41.9 Sepsis, unspecified organism (principal); J96.01 Acute respiratory failure with hypoxia; G90.9 Disorder of the autonomic nervous system, unspecified; J18.9 Pneumonia, unspecified organism; I95.0 Idiopathic hypotension; I10 Essential (primary) hypertension; F39 Unspecified mood [affective] disorder; D64.9 Anemia, unspecified; E87.6 Hypokalemia; Z20.822 Contact with and (suspected) exposure to COVID-19; Z95.0 Presence of cardiac pacemaker; Z87.440 Personal history of urinary (tract) infections; Z79.82 Long term (current) use of aspirin; Z79.899 Other long term (current) drug therapy
CPT/HCPCS: 0241U; 36415; 71045; 71275; 74177; 80048; 80053; 80076; 81003; 82607; 82728; 82746; 83540; 83605; 83615; 83690; 83735; 84145; 84484; 85007; 85025; 85027; 85045; 85379; 87040; 87449; 87899; 93005; 93306; 97162; 99285; J0696; J1650; J1720; J1956; J2405; J7120; Q9957; Q9967

== ENCOUNTER → 2024-09-02 08:52 | Outpatient (BNV) | payer BC, SELFPAY | PROVIDERS: Admitting Provider Physician Assistant; Emergency Provider Emergency Medicine; Visit Provider Internal Medicine Cardiovascular Disease | DX: R94.31 Abnormal electrocardiogram [ECG] [EKG] (principal) | CPT/HCPCS: 93010 ==

== ENCOUNTER 2024-09-02 15:21 | Outpatient (BNV) | payer BC, SELFPAY | END 2024-09-03 05:10 | PROVIDERS: Admitting Provider Physician Assistant; Emergency Provider Emergency Medicine; Visit Provider Internal Medicine Cardiovascular Disease | DX: R94.31 Abnormal electrocardiogram [ECG] [EKG] (principal); Z95.0 Presence of cardiac pacemaker; I51.89 Other ill-defined heart diseases; I31.39 Other pericardial effusion (noninflammatory) | CPT/HCPCS: 93010; 93306 ==

== ENCOUNTER → 2024-09-02 15:21 | Outpatient (BNV) | payer BC, SELFPAY | PROVIDERS: Admitting Provider Physician Assistant; Emergency Provider Emergency Medicine; Visit Provider Physician Assistant | DX: A41.9 Sepsis, unspecified organism (principal); D72.825 Bandemia | CPT/HCPCS: 99222; 99232; 99239 ==